=== PATIENT | male | born 1950 | race Caucasian/White ===

== ENCOUNTER → 2018-02-27 21:56 | Outpatient (CLI) | payer MEDICARE, OTHER, SELFPAY ==
[2018-02-27 22:12] LABS: Absolute Lymphocyte Count 0.88 X10^3/ul (0.83-4.51); Absolute Neutrophil Count 5.1 X10^3/uL (2.0-7.7); Basophil# 0.03 X10^3/uL; Basophil% 0.4 % (0-1); Eosinophils% 1.4 % (0-5); Hematocrit 45.3 % (40-54); Hemoglobin 15.8 g/dl (13.0-16.5); Lymphocyte # 0.88 X10^3/ul (4.0); Lymphocyte % 12.2 % (19-41); Mean Corp Hgb Conc 34.9 g/gl (32-36); Mean Corpuscular Hgb 32.3 pg (27.0-32.0); Mean Corpuscular Volume 92.6 fL (80-94); Mean Platelet Vol. 10.1 fl (6.2-12.0); Monocyte# 1.07 X10^3/uL; Monocyte% 14.8 % (0-10); Neutrophil # 5.13 X10^3/uL (2.7-7.7); Neutrophil % 70.8 % (47-70); Platelet Count 168 K/mm3 (150-450); RBC Distribution Width CV 12.1 % (11.6-14.6); RBC Distribution Width SD 40.7 fl (35.1-43.9); Red Blood Count 4.89 M/mm3 (4.6-6.2); White Blood Count 7.2 K/mm3 (4.4-11.0)
[2018-02-27 22:13] LABS: POSITIVE COUNT NO; POSITIVE DIFFERENTIAL NO; POSITIVE MORPHOLOGY NO
[2018-02-27 22:22] LABS: ALB/GLOB Ratio 0.8 RATIO (0.9-2.4); AST(SGOT) 28 U/L (15-37); Alanine Aminotransfer ALT/SGPT 24 U/L (16-61); Albumin, Serum 3.6 g/dL (3.2-5.0); Alkaline Phosphatase 134 U/L (45-117); Anion Gap 9 (5-15); BUN 6 mg/dL (7-18); BUN/Creat Ratio 6.5 RATIO (10-20); Calcium,Total 8.9 mg/dL (8.5-10.1); Chloride 90 mmol/L (98-107); Creatinine, Serum 0.92 mg/dL (0.70-1.30); EST Glomerular Filtration Rate 86 mL/min (>60); Est Glom Filt Rate - Afr Amer 105 mL/min (>60); Globulin 4.3 g/dL (2.2-4.2); Glucose 84 mg/dL (74-106); Protein, Total 7.9 g/dL (6.4-8.2); Sodium Level 126 mmol/L (136-145)
== END ==
PROVIDERS: Visit Provider Nurse Practitioner
DX: R10.30 Lower abdominal pain, unspecified (principal); R07.9 Chest pain, unspecified; R07.81 Pleurodynia
CPT/HCPCS: 80053; 84484; 85025

== ENCOUNTER → 2018-04-01 21:07 | Outpatient (CLI) | payer MEDICARE, OTHER, SELFPAY ==
[2018-04-01 21:32] LABS: Anion Gap 8 (5-15); BUN 6 mg/dL (7-18); BUN/Creat Ratio 6.5 RATIO (10-20); Calcium,Total 9.5 mg/dL (8.5-10.1); Chloride 91 mmol/L (98-107); Creatinine, Serum 0.93 mg/dL (0.70-1.30); EST Glomerular Filtration Rate 85 mL/min (>60); Est Glom Filt Rate - Afr Amer 103 mL/min (>60); Glucose 104 mg/dL (74-106); Potassium 5.2 mmol/L (3.5-5.1); Sodium Level 128 mmol/L (136-145)
== END ==
PROVIDERS: Referring Provider Nurse Practitioner; Visit Provider Nurse Practitioner
DX: E71.42 Carnitine deficiency due to inborn errors of metabolism (principal)
CPT/HCPCS: 80048

== ENCOUNTER → 2018-07-22 10:06 | Outpatient (CLI) | payer MEDICARE, OTHER, SELFPAY ==
[2018-03-31 17:07] VITALS: BMI 24.5
[2018-07-22 11:25] LABS: Amphetamine Urine VISTA NEGATIVE (<1000 ng/mL); Barbiturate Urine VISTA NEGATIVE (< 200 ng/mL); Benzodiazepine Urine VISTA NEGATIVE (< 200 ng/mL); Cocaine Urine VISTA NEGATIVE (< 300 ng/mL); Ecstacy Urine VISTA NEGATIVE (< 500 ng/mL); Methadone Urine VISTA NEGATIVE (< 300 ng/mL); PCP Urine VISTA NEGATIVE (< 25 ng/mL); THC Urine VISTA NEGATIVE (< 50 ng/mL); Vista UDS pH Range 6
== END ==
PROVIDERS: Family Provider Nurse Practitioner; PCP Nurse Practitioner; Referring Provider Anesthesiology Pain Medicine; Visit Provider Anesthesiology Pain Medicine
DX: F11.20 Opioid dependence, uncomplicated (principal)
CPT/HCPCS: 80307

== ENCOUNTER → 2019-11-10 21:17 | Outpatient (CLI) | payer MEDICARE, SELFPAY ==
[2019-11-10 14:55] VITALS: BMI 22.8
[2019-11-10 21:37] LABS: Absolute Neutrophil Count 4.6 X10^3/uL (2.0-7.7); Basophil# 0.07 X10^3/uL; Basophil% 1.1 % (0-1); Eosinophil# 0.07 X10^3/uL; Eosinophils% 1.1 % (0-5); Hemoglobin 14.8 g/dL (13.0-16.5); Mean Corp Hgb Conc 32.9 g/dL (32-36); Mean Corpuscular Volume 97.2 fL (80-94); Monocyte# 0.93 X10^3/uL; NRBC Flagged by Analyzer 0 % (0-5); Neutrophil # 4.57 X10^3/uL (2.7-7.7); Neutrophil % 68.6 % (47-70); Platelet Count 296 K/mm3 (150-450); RBC Distribution Width SD 46.1 fl (35.1-43.9); Red Blood Count 4.63 M/mm3 (4.6-6.2); White Blood Count 6.7 K/mm3 (4.4-11.0)
[2019-11-10 21:43] LABS: Prothrombin Time (Protime)PT. 13.1 SECONDS (11.7-14.9)
[2019-11-10 21:49] LABS: ALB/GLOB Ratio 0.9 RATIO (0.9-2.4); AST(SGOT) 39 U/L (15-37); Alanine Aminotransfer ALT/SGPT 32 U/L (16-61); Albumin, Serum 3.7 g/dL (3.2-5.0); Alkaline Phosphatase 98 U/L (45-117); Anion Gap 6 (5-15); BUN 7 mg/dL (7-18); BUN/Creat Ratio 7.2 RATIO (10-20); Calcium,Total 9.2 mg/dL (8.5-10.1); Chloride 95 mmol/L (98-107); Cholesterol 206 mg/dL (200); Creatinine, Serum 0.97 mg/dL (0.70-1.30); EST Glomerular Filtration Rate 81 mL/min (>60); Est Glom Filt Rate - Afr Amer 98 mL/min (>60); Globulin 4.1 g/dL (2.2-4.2); Glucose 89 mg/dL (74-106); High Density Lipoprotein 69 mg/dL; PSA,Total - Annual Screen 4.33 ng/mL (0.00-4.00); Potassium 5.1 mmol/L (3.5-5.1); Protein, Total 7.8 g/dL (6.4-8.2); Sodium Level 130 mmol/L (136-145); Triglycerides 197 mg/dL; Very Low Density Lipoprotein 39 mg/dL (5-40)
== END ==
PROVIDERS: PCP Nurse Practitioner; Visit Provider Nurse Practitioner
DX: M48.54XA Collapsed vertebra, not elsewhere classified, thoracic region, initial encounter for fracture (principal); I10 Essential (primary) hypertension; R35.0 Frequency of micturition; R07.9 Chest pain, unspecified; R10.10 Upper abdominal pain, unspecified; Z12.5 Encounter for screening for malignant neoplasm of prostate
CPT/HCPCS: 80053; 80061; 84153; 85025; 85610; G0103

== ENCOUNTER → 2019-12-04 20:15 | Outpatient (CLI) | payer MEDICARE, SELFPAY ==
[2019-12-04 16:17] VITALS: BMI 22.8
[2019-12-12 17:45] LABS: PSA, Free 0.86 ng/mL; PSA, Free % 14.8 % (.); PSA, Total Ultrasensitive 5.8 ng/mL (0.0-4.0)
== END ==
PROVIDERS: PCP Nurse Practitioner; Referring Provider Nurse Practitioner; Visit Provider Nurse Practitioner
DX: R97.20 Elevated prostate specific antigen [PSA] (principal)
CPT/HCPCS: 84153; 84154

== ENCOUNTER → 2020-03-22 21:21 | Outpatient (CLI) | payer MEDICARE, SELFPAY ==
[2020-03-22 21:55] LABS: ALB/GLOB Ratio 0.9 RATIO (0.9-2.4); AST(SGOT) 27 U/L (15-37); Alanine Aminotransfer ALT/SGPT 23 U/L (16-61); Albumin, Serum 3.8 g/dL (3.2-5.0); Alkaline Phosphatase 97 U/L (45-117); Anion Gap 7 (5-15); BUN 8 mg/dL (7-18); BUN/Creat Ratio 9.8 RATIO (10-20); Calcium,Total 8.8 mg/dL (8.5-10.1); Chloride 91 mmol/L (98-107); Creatinine, Serum 0.82 mg/dL (0.70-1.30); EST Glomerular Filtration Rate 99 mL/min (>60); Est Glom Filt Rate - Afr Amer 119 mL/min (>60); Globulin 4.1 g/dL (2.2-4.2); Glucose 86 mg/dL (74-106); Potassium 4.2 mmol/L (3.5-5.1); Protein, Total 7.9 g/dL (6.4-8.2); Sodium Level 125 mmol/L (136-145)
[2020-03-24 15:11] LABS: PSA, Free 1.15 ng/mL; PSA, Free % 13.9 % (.); PSA, Total Ultrasensitive 8.3 ng/mL (0.0-4.0)
== END ==
LOC: OLS.AHF 21:21 → LAB 03-23 06:22 → LABSPEC 03-23 06:27
PROVIDERS: Visit Provider Nurse Practitioner
DX: E87.1 Hypo-osmolality and hyponatremia (principal); R97.20 Elevated prostate specific antigen [PSA]
CPT/HCPCS: 80053; 84153; 84154

== ENCOUNTER → 2020-05-12 21:39 | Outpatient (CLI) | payer MEDICARE, SELFPAY ==
[2020-05-16 04:21] LABS: PSA, Free 0.68 ng/mL; PSA, Free % 14.8 % (.); PSA, Total Ultrasensitive 4.6 ng/mL (0.0-4.0)
== END ==
PROVIDERS: Referring Provider Nurse Practitioner; Visit Provider Nurse Practitioner
DX: R10.10 Upper abdominal pain, unspecified (principal); R97.20 Elevated prostate specific antigen [PSA]
CPT/HCPCS: 84153; 84154; 87086

== ENCOUNTER → 2021-04-27 22:49 | Outpatient (CLI) | payer MEDICARE, SELFPAY ==
[2021-04-27 23:17] LABS: Absolute Lymphocyte Count 0.92 X10^3/uL (0.83-4.51); Absolute Neutrophil Count 4.1 X10^3/uL (2.0-7.7); Basophil% 1.7 % (0-1); Eosinophil# 0.03 X10^3/uL; Eosinophils% 0.5 % (0-5); Hematocrit 43.2 % (40-54); Hemoglobin 14.6 g/dL (13.0-16.5); Lymphocyte # 0.92 X10^3/ul (0.83-4.51); Lymphocyte % 15.2 % (19-41); Mean Corp Hgb Conc 33.8 g/dL (32-36); Mean Corpuscular Hgb 32.9 pg (27.0-32.0); Mean Corpuscular Volume 97.3 fL (80-94); Mean Platelet Vol. 10.1 fl (6.2-12.0); Monocyte% 14.9 % (0-10); NRBC Flagged by Analyzer 0 % (0-5); Neutrophil # 4.07 X10^3/uL (2.7-7.7); Neutrophil % 67.4 % (47-70); Platelet Count 247 K/mm3 (150-450); RBC Distribution Width CV 12.2 % (11.6-14.6); RBC Distribution Width SD 44.2 fl (35.1-43.9); Red Blood Count 4.44 M/mm3 (4.6-6.2)
[2021-04-27 23:26] LABS: ALB/GLOB Ratio 0.8 RATIO (0.9-2.4); AST(SGOT) 42 U/L (15-37); Alanine Aminotransfer ALT/SGPT 31 U/L (16-61); Albumin, Serum 3.3 g/dL (3.2-5.0); Alkaline Phosphatase 108 U/L (45-117); Anion Gap 6 (5-15); BUN 4 mg/dL (7-18); Calcium,Total 8.6 mg/dL (8.5-10.1); Chloride 95 mmol/L (98-107); Cholesterol 197 mg/dL (200); Creatinine, Serum 0.81 mg/dL (0.70-1.30); EST Glomerular Filtration Rate 100 mL/min (>60); Est Glom Filt Rate - Afr Amer 120 mL/min (>60); Globulin 4.1 g/dL (2.2-4.2); Glucose 82 mg/dL (74-106); High Density Lipoprotein 84 mg/dL; Potassium 3.6 mmol/L (3.5-5.1); Protein, Total 7.4 g/dL (6.4-8.2); Sodium Level 130 mmol/L (136-145); Triglycerides 81 mg/dL; Very Low Density Lipoprotein 16 mg/dL (5-40)
== END ==
PROVIDERS: PCP Nurse Practitioner; Visit Provider Nurse Practitioner
DX: I10 Essential (primary) hypertension (principal); E78.5 Hyperlipidemia, unspecified; R97.20 Elevated prostate specific antigen [PSA]; Z12.5 Encounter for screening for malignant neoplasm of prostate
CPT/HCPCS: 80053; 80061; 84153; 85025; G0103

== ENCOUNTER → 2021-10-10 | Outpatient (CLI) | payer MEDICARE, SELFPAY ==
[2021-10-12 14:31] LABS: PSA, Free 0.78 ng/mL; PSA, Free % 12.4 % (.); PSA, Total Ultrasensitive 6.3 ng/mL (0.0-4.0)
== END | disposition home or self-care (01) ==
PROVIDERS: PCP Nurse Practitioner; Referring Provider Nurse Practitioner; Visit Provider Nurse Practitioner
DX: R97.20 Elevated prostate specific antigen [PSA] (principal); M54.50 Low back pain, unspecified; G89.29 Other chronic pain
CPT/HCPCS: 84153; 84154

== ENCOUNTER → 2021-12-08 | Outpatient (CLI) | payer MEDICARE, SELFPAY ==
[2021-12-12 16:16] LABS: PSA, Free % 8.4 % (.); PSA, Total Ultrasensitive 8.3 ng/mL (0.0-4.0)
== END | disposition home or self-care (01) ==
PROVIDERS: PCP Nurse Practitioner; Referring Provider Nurse Practitioner; Visit Provider Nurse Practitioner
DX: R97.20 Elevated prostate specific antigen [PSA] (principal)
CPT/HCPCS: 84153; 84154

== ENCOUNTER → 2022-11-02 | Outpatient (CLI) | payer MEDICARE, SELFPAY ==
[2022-11-02 21:46] LABS: Absolute Lymphocyte Count 0.89 X10^3/uL (0.83-4.51); Absolute Neutrophil Count 4.6 X10^3/uL (2.0-7.7); Basophil# 0.08 X10^3/uL; Basophil% 1.2 % (0-1); Eosinophil# 0.05 X10^3/uL; Eosinophils% 0.8 % (0-5); Hemoglobin 14.2 g/dL (13.0-16.5); Lymphocyte # 0.89 X10^3/ul (0.83-4.51); Lymphocyte % 13.7 % (19-41); Mean Corp Hgb Conc 34.6 g/dL (32-36); Mean Corpuscular Hgb 33.1 pg (27.0-32.0); Mean Corpuscular Volume 95.6 fL (80-94); Mean Platelet Vol. 9.1 fl (6.2-12.0); Monocyte# 0.85 X10^3/uL; NRBC Flagged by Analyzer 0 % (0-5); Neutrophil # 4.63 X10^3/uL (2.7-7.7); Platelet Count 268 K/mm3 (150-450); RBC Distribution Width CV 12.4 % (11.6-14.6); RBC Distribution Width SD 43.5 fl (35.1-43.9); Red Blood Count 4.29 M/mm3 (4.6-6.2); White Blood Count 6.5 K/mm3 (4.4-11.0)
[2022-11-02 21:50] LABS: ALB/GLOB Ratio 0.9 RATIO (0.9-2.4); AST(SGOT) 29 U/L (15-37); Alanine Aminotransfer ALT/SGPT 19 U/L (16-61); Albumin, Serum 3.7 g/dL (3.2-5.0); Alkaline Phosphatase 99 U/L (45-117); Anion Gap 7 (5-15); BUN 6 mg/dL (7-18); BUN/Creat Ratio 6.4 RATIO (10-20); Calcium,Total 9.3 mg/dL (8.5-10.1); Chloride 95 mmol/L (98-107); Cholesterol 157 mg/dL (200); Creatinine, Serum 0.94 mg/dL (0.70-1.30); EST Glomerular Filtration Rate 83 mL/min (>60); Est Glom Filt Rate - Afr Amer 101 mL/min (>60); Glucose 88 mg/dL (74-106); High Density Lipoprotein 93 mg/dL; Magnesium 1.8 mg/dL (1.6-2.6); PSA,Total- Diagnostic 7.83 ng/mL (0.0-4.0); Potassium 4.5 mmol/L (3.5-5.1); Protein, Total 7.7 g/dL (6.4-8.2); Sodium Level 129 mmol/L (136-145); Triglycerides 69 mg/dL; Very Low Density Lipoprotein 14 mg/dL (5-40)
== END | disposition home or self-care (01) ==
LOC: LABSPEC 21:19
PROVIDERS: PCP Nurse Practitioner; Visit Provider Nurse Practitioner
DX: R10.30 Lower abdominal pain, unspecified (principal); I10 Essential (primary) hypertension; N52.9 Male erectile dysfunction, unspecified; E78.5 Hyperlipidemia, unspecified; R97.20 Elevated prostate specific antigen [PSA]
CPT/HCPCS: 80053; 80061; 83735; 84153; 85025

== ENCOUNTER → 2023-06-17 | Outpatient (CLI) | payer MEDICARE, SELFPAY ==
--- OUTSIDE RECORDS SUMMARY | 2023-06-17 22:00 | XMS RPT_ITS | CCD ---
Author Name Unknown Address [address] [place] [address] Organization [facility] Care Team Providers Care Patrol Judge Name Role Phone ANGLE BERG Unavailable Unavailable ANGLE BERG Unavailable Unavailable TIANNA SIMON Unavailable Unavailable ANGLE BERG Unavailable Unavailable ANGLE BERG Unavailable Unavailable TIANNA, SIMON Unavailable Unavailable PROVIDER, UNKNOWN Unavailable Unavailable Walters, Cuauhtemoc Unavailable Unavailable Kenan Melendez Unavailable Unavailable Shannon Norton Unavailable Unavailable PROVIDER, UNKNOWN Unavailable Unavailable Walters, Cuauhtemoc Unavailable Unavailable Walters, Cuauhtemoc Unavailable Unavailable PROVIDER, UNKNOWN Unavailable Unavailable Walters, Cuauhtemoc Unavailable Unavailable Augustus Salguero Unavailable Unavailable PROVIDER, UNKNOWN Unavailable Unavailable Walters, Cuauhtemoc Unavailable Unavailable Walters, Cuauhtemoc Unavailable Unavailable PROVIDER, UNKNOWN Unavailable Unavailable Walters, Cuauhtemoc Unavailable Unavailable Walters CORN MILLER.HOME SERVICE ADVISOR, Cuauhtemoc L Primary Care Provide r Usama Siddiqi MD Unavailable [phone] DUKE FRANKLIN Attending Unavailable WALTERS, CUAUHTEMOC L Primary Care Unavailable RIVAS, EMMA E Attending Unavailable WALTERS, CUAUHTEMOC L Primary Care Unavailable WALTERS, CUAUHTEMOC L Primary Care Unavailable RIVSA, EMMA E Attending Unavailable WALTERS, CUAUHTEMOC L Primary Care Unavailable SUKHJINDER LAN Attending Unavailable WALTERS, CUAUHTEMOC L Primary Care Unavailable RIVAS, EMMA E Admitting Unavailable RIVAS, EMMA E Attending Unavailable WALTERS, CUAUHTEMOC L Primary Care Unavailable RIVAS, EMMA E Referring Unavailable WALTERS, CUAUHTEMOC L Primary Care Unavailable RIVAS, EMMA E Referring Unavailable WALTERS, CUAUHTEMOC L Primary Care Unavailable DUKE FRANKLIN Referring Unavailable WALTERS, CUAUHTEMOC L Primary Care Unavailable DUKE FRANKLIN Referring Unavailable WALTERS, CUAUHTEMOC L Primary Care Unavailable WALTERS, CUAUHTEMOC L Primary Care Unavailable RIVAS, EMMA E Admitting Unavailable EMMA RIVAS Attending Unavailable MURALI GARRETT Unavailable CUAUHTEMOC WALTERS Primary Care Unavailable DELROY MERA Admitting Unavailable VLAERIA [place] Attending Unavailable Cuauhtemoc Walters Primary Care Provider [phone] CUAUHTEMOC WALTERS Primary Care Unavailable SHANNON NORTON Attending Unavailable SHANNON NORTON Admitting Unavailable Medications Current Medications Medication Drug Class(es) Dates Sig (Normalized) Sig (Original) olmesartan (1 source) Angiotensin 2 Receptor Jaden OLMESARTAN MEDOXOMIL PO Take by mouth. 0 Active zafirlukast 20 mg oral tablet (1 source) Leukotriene Receptor Antagonist take 1 tablet by mouth in the morning zafirlukast (Accolate) 20 MG tablet Take 20 mg by mouth in the morning. 0 Active Completed/Discontinued Medications Medication Drug Class(es) Dates Sig (Normalized) Sig (Original) aspirin 81 mg chewable tablet (10 sources) Platelet Aggregation Inhibitor, Nonsteroidal Anti-inflammatory Drug Start: 10-20-2013 take 1 tablet by mouth once daily aspirin 81 mg chewable tablet Take 1 tablet by mouth once daily. 90 tablet 3 10/20/2013 Active Problems Active Problems Problem Classification Problem Date Documented Da te Episodic/Chronic Abdominal hernia (9 sources) Diaphragmatic hernia without obstruction or gangrene; Translations: [Right inguinal hernia ] Onset: 04-04-2018 Episodic Cardiac dysrhythmias (10 sources) Nonsustained ventricular tachycardia ; Translations: [Nonsustained ventricular tachycardia] Onset: 10-19-2013 06-05-2021 Chronic Cataract (6 sources) Age-related nuclear cataract, right eye; Translations: [Senile combined form cataract of left eye] Onset: 10-21-2017 Resolved: 04-22-2023 04-22-2023 Chronic Conditions associated with dizziness or vertigo (1 source) Dizziness and giddiness; Translations: [Episode of dizziness] Onset: 10-10-2022 Episodic Conduction disorders (12 sources) Left bundle-branch block, unspecified; Translations: [Left bundle branch block] Onset: 07-07-2015 06-01-2017 Chronic Coronary atherosclerosis and other heart disease (20 sources) Atherosclerotic heart disease of [place] coronary artery without angina pectoris; Translations: [Coronary atherosclerosis] Onset: 10-20-2013 07-07-2015 Chronic Disorders of lipid metabolism (14 sources) Hyperlipidemia, unspecified; Translations: [Pure hypercholesterolemia] Onset: 07-07-2015 07-07-2015 Chronic Esophageal disorders (6 sources) Gastro-esophageal reflux disease without esophagitis; Translations: [Esophageal obstruction] Onset: 10-21-2017 Chronic Essential hypertension (15 sources) Essential (primary) hypertension; Translations: [Hypertensive disorder] Onset: 01-02-2010 06-05-2021 Chronic Malaise and fatigue (2 sources) Other malaise; Translations: [Other fatigue] Onset: 10-10-2022 Episodic Other fractures (2 sources) Collapsed vertebra, not elsewhere classified, thoracic region, initial encounter for fracture; Translations: [Collapsed vertebra, NEC, thoracic region, init] Onset: 04-04-2018 Episodic Other gastrointestinal disorders (2 sources) Dysphagia, unspecified; Translations: [Dysphagia, unspecified] Onset: 03-06-2018 Episodic Other gastrointestinal disorders (1 source) Diarrhea; Translations: [Diarrhea, unspecified] Episodic Other injuries and conditions due to external causes (2 sources) Food in esophagus causing other injury, initial encounter; Translations: [Food in esophagus causing other injury, initial encounter] Onset: 03-06-2018 Other lower respiratory disease (2 sources) Other nonspecific abnormal finding of lung field; Translations: [Other nonspecific abnormal finding of lung field] Onset: 03-05-2018 Episodic Other lower respiratory disease (2 sources) H/O: pneumothorax; Translations: [Personal history of other diseases of the respiratory system] Episodic Other lower respiratory disease (1 source) Personal history of other diseases of the respiratory system; Translations: [H/O pneumothorax] Onset: 08-21-2022 Episodic Other nervous system disorders (1 source) Anesthesia of skin; Translations: [Left facial numbness] Onset: 10-10-2022 Episodic Other nutritional; endocrine; and metabolic disorders (1 source) Hypomagnesemia; Translations: [Hypomagnesemia] Onset: 10-10-2022 Chronic Residual codes; unclassified (1 source) History of hernia repair; Translations: [Other specified postprocedural states] Episodic Spondylosis; intervertebral disc disorders; other back problems (2 sources) Other spondylosis, thoracic region; Translations: [Other spondylosis, thoracic region] Onset: 04-04-2018 Chronic Transient cerebral ischemia (1 source) Transient cerebral ischemic attack, unspecified; Translations: [TIA (transient ischemic attack)] Onset: 10-11-2022 Chronic Unclassified (1 source) Unknown / UNK(Unknown) Onset: 06-02-2017 Past or Other Problems Problem Classification Problem Date Documented Da te Episodic/Chronic Appendicitis and other appendiceal conditions (11 sources) Acute appendicitis with localized peritonitis; Translations: [Acute appendicitis with localized peritonitis and gangrene, without perforation] Onset: 07-12-2022 07-13-2022 Episodic Coronary atherosclerosis and other heart disease (15 sources) Presence of coronary angioplasty implant and graft; Translations: [Stented coronary artery] Onset: 07-07-2015 06-02-2017 Episodic Fluid and electrolyte disorders (11 sources) Hyponatremia; Translations: [Hypo-osmolality and hyponatremia] Onset: 10-19-2013 Episodic Nonspecific chest pain (20 sources) Chest pain, unspecified; Translations: [Chest pain] Onset: 01-02-2010 06-02-2017 Episodic Other aftercare (4 sources) termite treater (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 of aspirin; Translations: [termite treater (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 of aspirin] Onset: 10-21-2017 Episodic Other gastrointestinal disorders (1 source) Esophageal dysphagia; Translations: [Other dysphagia] Onset: 03-06-2018 03-23-2022 Episodic Other injuries and conditions due to external causes (1 source) Obstruction of esophagus; Translations: [Food in esophagus causing other injury, initial encounter] Onset: 03-06-2018 03-23-2022 Episodic Other injuries and conditions due to external causes (1 source) Foreign body in esophagus; Translations: [Unspecified foreign body in esophagus causing other injury, initial encounter] Onset: 03-06-2018 03-23-2022 Episodic Other screening for suspected conditions (not mental disorders or infectious disease) (10 sources) Cardiovascular stress test abnormal; Translations: [Abnormal result of other cardiovascular function study] Onset: 01-02-2010 01-02-2010 Episodic Pleurisy; pneumothorax; pulmonary collapse (17 sources) Primary spontaneous pneumothorax; Translations: [Primary spontaneous pneumothorax] Onset: 07-12-2022 07-12-2022 Episodic Residual codes; unclassified (1 source) Acquired absence of other specified parts of digestive tract; Translations: [S/P laparoscopic appendectomy] Onset: 07-12-2022 Episodic Screening or history of mental health and substance abuse (14 sources) Personal history of nicotine dependence; Translations: [Ex-cigarette smoker] Onset: 07-07-2015 07-07-2015 Episodic Results Test Name Value Interpretation Reference Range Facil ity Vital Signs Date Time Vital Sign Value Performing Clinician Faci lity 04-22-2023 14:03-0500 Body temperature 97.3 [degF] Shannon Norton MD Work Phone: [facility] 04-22-2023 14:03-0500 Diastolic blood pressure 83 mm[Hg] Shannon Norton MD Work Phone: [facility] 04-22-2023 14:03-0500 Heart rate 71 /min Shannon Norton MD Work Phone: [facility] 04-22-2023 14:03-0500 Respiratory rate 16 /min Shannon Norton MD Work Phone: [facility] 04-22-2023 14:03-0500 SaO2% (BldA) [Mass fraction] 99 % Shannon Norton MD Work Phone: [facility] 04-22-2023 14:03-0500 Systolic blood pressure 142 mm[Hg] Shannon Norton MD Work Phone: [facility] 04-22-2023 12:07-0500 Body height 175.3 cm Shannon Norton MD Work Phone: [facility] 04-22-2023 12:07-0500 Body mass index (BMI) [Ratio] 20.67 kg/m2 Shannon Norton MD Work Phone: [facility] 04-22-2023 12:07-0500 Body weight 63.5 kg Shannon Norton MD Work Phone: [facility] 07-09-2022 14:22-0500 Body height 175.3 cm Duke Franklin MD Work Phone: [facility] 07-09-2022 14:22-0500 Body weight 61.69 kg Duke Franklin MD Work Phone: [facility] Encounters Encounter Date Encounter Type Care Provider Facility Start: 04-22-2023 End: 04-22-2023 ambulatory CUAUHTEOMC WALTERS [facility] Start: 04-22-2023 End: 04-22-2023 Subsequent hospital visit by physician Shannon Norton MD Work Phone: [facility] Start: 10-10-2022 End: 10-11-2022 ambulatory CUAUHTEMOC WALTERS Facility:[facility] Start: 09-18-2022 End: 09-18-2022 ambulatory EMMAPETAR RIVAS Facility:[facility] Start: 09-18-2022 End: 09-18-2022 Patient encounter procedure Emma Rivas MD Work Phone: General Surgery Procedures Date Procedure Procedure Detail Performing Clinician Start: 07-11-2022 Ct pelvis w/o contra st material Duke Franklin MD Work Phone: Start: 07-09-2022 Urnls dip stick/tabl et rgnt auto w/o microscopy Duke Franklin MD Work Phone: Plan of Treatment Date Care Activity Detail Author Start: 07-13-2025 DIABETES SCREEN DIABETES SCREEN [facility] Start: 04-22-2023 End: 04-22-2023 Xcapsl ctrc rmvl insj io lens prosth w/o ecp PHACOEMULSIFICATION WITH INTRAOCULAR LENS INSERTION Combined forms of age-related cataract, left eye 04/22/2023 1:29 PM EST [facility] OR Start: 02-08-2023 Influenza vaccination [facility] Start: 06-10-2022 ADVANCE DIRECTIVE DISCUSSION ADVANCE DIRECTIVE DISCUSSION [facility] Start: 06-10-2022 DEPRESSION ASSESSMENT DEPRESSION ASSESSMENT [facility] Start: 02-08-2022 Influenza vaccination INFLUENZA (#1) [facility] Start: 06-01-2020 DIABETES SCREEN DIABETES SCREEN [facility] Start: 10-20-2018 LIPID SCREEN LIPID SCREEN [facility] Start: 10-20-2014 Hepatitis B surface antibody level LDL CHOLESTEROL [facility] Start: 02-16-2013 Pneumococcal Vaccine: 65+ Years (1 - PCV) Pneumococcal Vaccine: 65+ Years (1 - PCV) [facility] Start: 02-16-2013 PNEUMOCOCCAL: 65+ (1 - PCV) PNEUMOCOCCAL: 65+ (1 - PCV) [facility] Start: 02-16-1998 SHINGRIX VACCINE (1 of 2) SHINGRIX VACCINE (1 of 2) [facility] Start: 02-16-1998 Zoster Vaccines (1 of 2) Zoster Vaccines (1 of 2) [facility] Start: 02-16-1993 COLOGUARD (FIT-DNA) COLOGUARD (FIT-DNA) [facility] Start: 02-16-1993 Colonoscopy COLONOSCOPY [facility] Start: 02-16-1993 COLORECTAL CANCER SCREENING COLORECTAL CANCER SCREENING [facility] Start: 02-16-[address] COLONOGRAPHY [facility] Start: 02-16-1993 FECAL OCCULT BLOOD FECAL OCCULT BLOOD [facility] Start: 02-16-1993 SIGMOIDOSCOPY SIGMOIDOSCOPY [facility] Start: 02-16-1967 DTaP/Tdap/Td Vaccines (1 - Tdap) DTaP/Tdap/Td Vaccines (1 - Tdap) [facility] Start: 02-16-1967 Urine microalbumin profile DTAP,TDAP,TD (1 - Tdap) [facility] Start: 02-16-1966 ANNUAL PCP TEAM CHRONIC DISEASE VISIT ANNUAL PCP TEAM CHRONIC DISEASE VISIT [facility] Start: 02-16-1966 BP CONTROLLED (<130/80) BP CONTROLLED (<130/80) [facility] in Start: 02-16-1966 Diabetes mellitus screening Diabetes Screening [facility] Start: 02-16-1966 HEPATITIS C SCREENING HEPATITIS C SCREENING [facility] Start: 02-16-1966 Hepatitis C screening Hepatitis C Screening [facility] Start: 1960 Depression Screening Depression Screening [facility] Start: 1950 COVID-19 VACCINE (#1) COVID-19 VACCINE (#1) [facility] Start: 1950 ABDOMINAL AORTIC ANEURYSM SCREENING ABDOMINAL AORTIC ANEURYSM SCREENING [facility] Start: 1950 Lipid panel Lipid Panel [facility] Start: 1950 Medicare Advantage Annual Wellness Visit (AWV) Medicare Advantage Annual Wellness Visit (AWV) [facility] Start: 1950 Screening for malignant neoplasm of colon [facility] Clostridioides diffi cile toxin genes [Presence] in Stool by ALEX with probe detection C. DIFFICILE PCR Lab Routine Diarrhea, unspecified type 07/18/2022 12:00 PM EST [facility] Work Phone: End: 08-08-2023 Ct pelvis w/o contrast material CT PELVIS WO IVCON Radiology STAT Right inguinal hernia 1 Occurrences starting 07/09/2022 until 08/08/2023 [facility] Work Phone: Payers Date Payer Category Payer Medicare [id number] 2013 Medicare 1950 Unknown [id number] 1950 Unknown [id number] 1950 Unknown [id number] 1950 Unknown [id number] 1950 Unknown [id number] Medicare [id number] Unknown Social History Date Type Detail Facility Start: 07-09-2022 [facility] End: 03-10-2014 History of tobacco use Current smoker [facility] End: 03-10-2014 History of tobacco use Cigarette Smoker [facility] Start: 07-09-2022 End: 04-22-2023 Cigarette pack-years [facility] Start: 07-09-2022 End: 04-22-2023 Alcohol intake Current drinker of alcohol (finding) [facility] Start: 06-01-2017 Alcohol Comment daily [facility] Start: 1950 Sex Assigned At Not on file [facility] Start: 04-22-2023 Tobacco use panel [facility] Start: 04-22-2023 Alcohol Comment 6-8 beers/day [facility] Medical Equipment Procedure Code Equipment Code Equipment Origin al Text Equipment Identifier Dates Med Dextile Rt 1 3cm X 9cm (5.1 X 3.5) - [id number] Start: 08-24-2022 Lens Iol Posteri or Akreos [facility] - [id number] - [id number] Start: 04-22-2023 Clinical Notes 10-17-2013 to 04-22-2023 Perioperative Nursing Note - Roberta Alcantar RN - 04/22/2023 2:47 PM ESTPerioperative Nursing Note - Roberta Alcantar RN - 04/22/2023 2:47 PM ESTDischarge Instructions Note Date & Type Note Facility 04-22-2023 Note Discharged to home . Accompanied by . AVS and education reviewed with patient and , both verbalized understanding. Mode of transportation private vehicle Belongings sent. [facility] 04-22-2023 Note Patient: Stu salinas Procedure Summary Date: 04/22/23 Room / Location: [facility] Anesthesia Start: 1328 Anesthesia Stop: 1406 Procedure: PHACOEMULSIFICATION WITH INTRAOCULAR LENS INSERTION (Left: Eye) Diagnosis: Combined forms of age-related cataract, left eye (Combined forms of age-related cataract, left eye [H25.812]) Surgeons: Shannon Norton MD Responsible Provider: No Anesthesiologist - marlen/MD Jesica Anesthesia Type: MAC ASA Status: 3 Anesthesia Type: MAC Vitals Value Taken Time BP 156/85 04/22/23 1406 Temp 98.0 f 04/22/23 1407 Pulse 73 04/22/23 1406 Resp 15 04/22/23 1407 SpO2 100 % 04/22/23 1406 Vitals shown include unfiled device data. Anesthesia Post Evaluation Patient location during evaluation: PACU Patient participation: complete - patient participated Level of consciousness: awake and alert Pain management: satisfactory to patient Airway patency: patent Dental Injury: no Cardiovascular status: acceptable, blood pressure returned to baseline and hemodynamically stable Respiratory status: acceptable and spontaneous ventilation Hydration status: euvolemic Nausea/Vomiting: controlled No notable events documented. Patient can be discharged once all PACU criteria has been met. [facility] 04-22-2023 Note Patient: Stu salinas Procedure Summary Date: 04/22/23 Room / Location: [facility] / [facility] OR Anesthesia Start: 1329 Anesthesia Stop: 1406 Procedure: PHACOEMULSIFICATION WITH INTRAOCULAR LENS INSERTION (Left: Eye) Diagnosis: Combined forms of age-related cataract, left eye (Combined forms of age-related cataract, left eye [H25.812]) Surgeons: Shannon Norton MD Responsible Provider: No Anesthesiologist - Ana/MD Jesica Anesthesia Type: MAC ASA Status: 3 Anesthesia Type: MAC Vitals Value Taken Time BP 156/85 04/22/23 1406 Temp 98.0 04/22/23 1406 Pulse 73 04/22/23 1406 Resp 15 04/22/23 1406 SpO2 100 % 04/22/23 1406 Vitals shown include unfiled device data. Anesthesia Post Evaluation Patient location during evaluation: PACU Patient participation: complete - patient participated Level of consciousness: awake and alert Pain management: satisfactory to patient Multimodal analgesia pain management approach Airway patency: patent Two or more strategies used to mitigate risk of obstructive sleep apnea Cardiovascular status: acceptable and hemodynamically stable Respiratory status: acceptable Hydration status: acceptable No notable events documented. MIPS #[id number] PONV Patient did not receive an inhalational anesthetic (XX430) MIPS # 424 Perioperative Temperature Management Anesthesia time was less than 60 minutes (4256F) MIPS #477 Multimodal Pain Management Not emergent case Patient was not administered multimodal pain management (G2149) Patient reports no pain in PACU (G2149) MIPS #404 Anesthesiology Smoking Abstinence The patient is not a current smoker (e.g. cigarette, cigar, pipe, e-cigarette/vaping/marijuana) If no stop here (G9644) I completed my handoff to the receiving clinician during which we: 1. Identified the patient 2. Identified the responsible provider 3. Reviewed the pertinent medical history 4. Discussed the surgical course 5. Reviewed intra-op anesthesia management and issues during anesthesia 6. Set expectations for post-procedure period 7. Allowed opportunity for questions and acknowledgement of understanding. [facility] 04-22-2023 Note Formatting of this n ote might be different from the original. Discharged to home . Accompanied by . AVS and education reviewed with patient and , both verbalized understanding. Mode of transportation private vehicle Belongings sent. [facility] 04-22-2023 Miscellaneous Notes Discharged to home . Accompanied by . AVS and education reviewed with patient and , both verbalized understanding. Mode of transportation private vehicle Belongings sent. Operative Report NAME: Stu Edmonds : 1950 AGE: 73 y.o. SURGEON: Shannon Norton M.D. OPERATIVE EYE: left PREOPERATIVE DIAGNOSIS: Mature mixed cataract, nuclear sclerotic and posterior subcapsular operative eye. POSTOPERATIVE DIAGNOSIS: Mature mixed cataract, nuclear sclerotic and posterior subcapsular operative eye. OPERATION: 1. Cataract extraction by phacoemulsification with placement of posterior chamber intraocular lens implant 2. Staining of the anterior capsule using trypan blue. CERTIFIED DRIVER EXAMINER: None CATERING SERVICE MANAGER: Per anesthesia record. ANESTHESIA: Local with topical tetracaine drops and monitored anesthesia care. COMPLICATIONS: None. INDICATIONS: as delineated PROCEDURE: The patient was brought to the operating room, placed in supine position. Attention was given to the operative eye. Topical anesthetic tetracaine drops were administered. The eye was then prepped and draped in usual sterile ophthalmic fashion. A wire lid speculum was placed in the operative microscope was used. On inspection, the density of the cataract was such that it prevented adequate visualization of the anterior chamber structure. The red reflex was poor. As a result, it was determined that the anterior capsule would be stained using trypan blue to facilitate visualization of the anterior capsule. A 1.0 mm side-port blade was then used to create paracentesis at the 2 o'clock position. Through this incision and air bubble was introduced into the anterior chamber. Trypan blue was then dripped into the anterior capsular service and allowed to remain in place for approximately 30 seconds. It was then flushed and using balanced salt solution. Following this Viscoelastic was then used to inflate the anterior chamber and cut the endothelial surface. A 2.4 mm microkeratome was then used to create a triplanar clear corneal incision at the 11 o'clock position. A pre-patient cystotome was then used to initiate an anterior capsulorrhexis. An Utrata forceps was then used to complete the capsulorrhexis in a curvilinear fashion. Balanced salt solution on a flat-tipped cannula was then used to perform hydrodissection and hydrodelineation of the lens. It was confirmed that the lens was freely mobile within the capsular bag. Phacoemulsification was then performed in a divide and conquer manner to remove the lens nucleus. Phacoemulsification time was CDE 21.56. Automated irrigation and aspiration was then performed to remove all cortical remnants. Capsular bag was inflated using Provisc. The lens injector was then used to place a model Akreos [id number] +16.50 diopter intraocular lens directly to the capsular bag. It was rotated in the proper position using the Jonas wand. The residual Viscoelastic was then removed using automated irrigation and aspiration. The wounds were hydrated using balanced salt solution. They were check for leaks and none were found. Topical antibiotic drops antibiotic/steroid ointment were placed. The eye was patched and shielded. The patient was transferred to the postacute care unit in good condition. SHANNON NORTON MD 04/22/23 2:05 PM documented in this encounter [facility] 04-22-2023 Hospital Discharge instructions Shannon Norton MD - 04/22/2023 2:03 PM EST Post-Operative Cataract Instructions You may take the patch and shield off and start taking eye drops FOUR hours after leaving the hospital. Your vision will be blurry. Starting drops will accelerate your healing process. After using the eye drops, replace the metal or plastic eye shield over the operative eye using a single piece of take Do NOT reapply the cotton patch. PREDNISOLONE ACETATE 1%: Apply 1 drop to the surgical eye EVERY HOUR while awake. MOXIFLOXACIN: Apply 1 drop to the surgical eye EVERY 2 HOURS while awake. KETOROLAC: Apply 1 drop to the surgical eye EVERY 2 HOURS while awake. Wait 5 minutes in between eye drops. The order does not matter. Continue taking the drops in this manner until your appointment tomorrow. What to Expect at Home Your Recovery: After surgery, your eye may be sore, it may feel scratchy, sticky, or uncomfortable. It may also water more than usual. Most people see better 1 to 3 days after surgery. But it could take 3 to 10 weeks to get the full benefits of surgery and to see as clearly as possible. Your doctor may send you home with a bandage, patch, or clear shield on your eye. This will keep you from rubbing your eye. Your doctor will also give you eyedrops to help your eye heal. Use them exactly as directed. You can read or watch TV right away, but things may look blurry. Most people are able to return to work or their normal routine in 1 to 3 days. After your eye heals, you may still need to wear glasses, especially for reading. This care sheet gives you a general idea about how long it will take for you to recover. But each person recovers at a different pace. Follow the steps below to get better as quickly as possible. How can you care for yourself at home? Activity Rest when you feel tired. Getting enough sleep will help you recover. You may have trouble judging distances for a few days. Move slowly, and be careful going up and down stairs and pouring hot liquids. Ask for help if you need it. Ask your doctor when it is okay to drive. Wear your eye bandage, patch, or shield for as long as your doctor recommends. You may only need to wear it when you sleep. You can shower or wash your hair the day after surgery. Keep water, soap, shampoo, hair spray, and shaving lotion out of your eye, especially for the first week. Do not rub or put pressure on your eye for at least 1 week. Do not wear eye makeup for 1 to 2 weeks. You may also want to avoid face cream or lotion. Do not get your hair colored or permed for 10 days after surgery. Do not bend over or do any strenuous activities, such as biking, jogging, weight lifting, or aerobic exercise, for 2 weeks or until your doctor says it is okay. Avoid swimming, hot tubs, gardening, and dusting for 1 to 2 weeks. Wear sunglasses on bright days for at least 1 year after surgery. Medicines You can resume all your regular medicines. She will also give you instructions about taking any new medicines. Follow your doctor's instructions for when to use your eyedrops. Always wash your hands before you put your drops in. To put in eyedrops: -Tilt your head back, and pull your lower eyelid down with one finger. -Drop the medicine inside the lower lid. -Close your eye for 30 to 60 seconds to let the drops absorb. -Do not touch the dropper tip to your eyelashes or any other surface. Follow your doctor's instructions for taking pain medicines. Follow-up care is a olson part of your treatment and safety. Be sure to make and go to all appointments, and call your doctor if you are having problems. It's also a good idea to know your test results and keep a list of the medicines you take. When should you call for help? Call 911 anytime you think you may need emergency care. For example, call if: You passed out (lost consciousness). You have severe trouble breathing. You have sudden chest pain and shortness of breath, or you cough up blood. Call your doctor now or seek immediate medical care if: You have eye pain. You have pus draining from your eye. Your vision gets worse. Your eye is still red and bloodshot after 3 or 4 days. You notice new floaters, flashes of light, or changes in your field of vision. Watch closely for changes in your health, and be sure to contact your doctor if you have any problems. documented in this encounter [facility] 04-22-2023 Note Subjective Stu Edmonds is a 73 y.o. male who presents to the [facility] today for a preoperative consultation at the request of surgeon Dr Norton who plans on performing Cataract surgery, left eye on April 22. Planned anesthesia: IV sedation. Pacemaker: no Defibrillator: no Blood Thinners: no Social History Socioeconomic History Marital status: Spouse name: Not on file Number of children: Not on file Years of education: Not on file Highest education level: Not on file Occupational History Not on file Tobacco Use Smoking status: Former Types: Cigarettes Quit date: 03/10/2014 Years since quittin.1 Smokeless tobacco: Never Substance and Sexual Activity Alcohol use: Yes Alcohol/week: 6.0 standard drinks of alcohol Types: 6 Standard drinks or equivalent per week Comment: 6-8 beers/day Drug use: No Sexual activity: Not on file Other Topics Concern Not on file Social History Narrative Not on file Social Determinants of Health Financial Resource Strain: Not on file Food Insecurity: Not on file Transportation Needs: Not on file Physical Activity: Not on file Stress: Not on file Social Connections: Not on file Intimate Partner Violence: Not on file Housing Stability: Not on file Past Medical History: Diagnosis Date CAD (coronary artery disease) GERD (gastroesophageal reflux disease) Hyperlipidemia Hypertension Past Surgical History: Procedure Laterality Date CARDIAC SURGERY stents x3 CATARACT EXTRACTION W/ INTRAOCULAR LENS IMPLANT Right 10/21/2017 DR NGUYEN ROTATOR CUFF REPAIR Left UPPER GASTROINTESTINAL ENDOSCOPY N/A 03/06/2018 EGD with dilitation Allergies:No Known Allergies Vital Signs: Ht 5'9 Wt 140 Bp 121/79 Pox 98% HR 82 resp 16 temp 97.6 Physical Exam Constitutional: Appearance: Normal appearance. HENT: Mouth/Throat: Pharynx: Oropharynx is clear. Eyes: Pupils: Pupils are equal, round, and reactive to light. Cardiovascular: Rate and Rhythm: Normal rate and regular rhythm. Pulmonary: Effort: Pulmonary effort is normal. Breath sounds: Normal breath sounds. Musculoskeletal: General: Normal range of motion. Cervical back: Normal range of motion. Skin: General: Skin is warm and dry. Neurological: Mental Status: He is alert and oriented to person, place, and time. Psychiatric: Mood and Affect: Mood normal. Judgment: Judgment normal. Predictors of anesthesia difficulty: Tolerate anesthesia in past: yes Morbid obesity? no Neck range of motion: normal Dentition: No chipped, loose, or missing teeth. Ap: CAD HTN TIA (10/2022) HLD GERD Cataract, L [facility] 04-22-2023 Note Formatting of this n ote might be different from the original. Operative Report NAME: Stu Edmonds : 1950 AGE: 73 y.o. SURGEON: Shannon Norton M.D. OPERATIVE EYE: left PREOPERATIVE DIAGNOSIS: Mature mixed cataract, nuclear sclerotic and posterior subcapsular operative eye. POSTOPERATIVE DIAGNOSIS: Mature mixed cataract, nuclear sclerotic and posterior subcapsular operative eye. OPERATION: 1. Cataract extraction by phacoemulsification with placement of posterior chamber intraocular lens implant 2. Staining of the anterior capsule using trypan blue. CERTIFIED DRIVER EXAMINER: None CATERING SERVICE MANAGER: Per anesthesia record. ANESTHESIA: Local with topical tetracaine drops and monitored anesthesia care. COMPLICATIONS: None. INDICATIONS: as delineated PROCEDURE: The patient was brought to the operating room, placed in supine position. Attention was given to the operative eye. Topical anesthetic tetracaine drops were administered. The eye was then prepped and draped in usual sterile ophthalmic fashion. A wire lid speculum was placed in the operative microscope was used. On inspection, the density of the cataract was such that it prevented adequate visualization of the anterior chamber structure. The red reflex was poor. As a result, it was determined that the anterior capsule would be stained using trypan blue to facilitate visualization of the anterior capsule. A 1.0 mm side-port blade was then used to create paracentesis at the 2 o'clock position. Through this incision and air bubble was introduced into the anterior chamber. Trypan blue was then dripped into the anterior capsular service and allowed to remain in place for approximately 30 seconds. It was then flushed and using balanced salt solution. Following this Viscoelastic was then used to inflate the anterior chamber and cut the endothelial surface. A 2.4 mm microkeratome was then used to create a triplanar clear corneal incision at the 11 o'clock position. A pre-patient cystotome was then used to initiate an anterior capsulorrhexis. An Utrata forceps was then used to complete the capsulorrhexis in a curvilinear fashion. Balanced salt solution on a flat-tipped cannula was then used to perform hydrodissection and hydrodelineation of the lens. It was confirmed that the lens was freely mobile within the capsular bag. Phacoemulsification was then performed in a divide and conquer manner to remove the lens nucleus. Phacoemulsification time was CDE 21.56. Automated irrigation and aspiration was then performed to remove all cortical remnants. Capsular bag was inflated using Provisc. The lens injector was then used to place a model Akreos MI60L +16.50 diopter intraocular lens directly to the capsular bag. It was rotated in the proper position using the Jonas wand. The residual Viscoelastic was then removed using automated irrigation and aspiration. The wounds were hydrated using balanced salt solution. They were check for leaks and none were found. Topical antibiotic drops antibiotic/steroid ointment were placed. The eye was patched and shielded. The patient was transferred to the postacute care unit in good condition. SHANNON NORTON MD 04/22/23 2:05 PM [facility] 04-22-2023 History and physical note Casandra Edmonds is a 73 y.o. male who presents to the [facility] today for a preoperative consultation at the request of surgeon Dr Norton who plans on performing Cataract surgery, left eye on April 22. Planned anesthesia: IV sedation. Pacemaker: no Defibrillator: no Blood Thinners: no Social History Socioeconomic History Marital status: Spouse name: Not on file Number of children: Not on file Years of education: Not on file Highest education level: Not on file Occupational History Not on file Tobacco Use Smoking status: Former Types: Cigarettes Quit date: 03/10/2014 Years since quittin.1 Smokeless tobacco: Never Substance and Sexual Activity Alcohol use: Yes Alcohol/week: 6.0 standard drinks of alcohol Types: 6 Standard drinks or equivalent per week Comment: 6-8 beers/day Drug use: No Sexual activity: Not on file Other Topics Concern Not on file Social History Narrative Not on file Social Determinants of Health Financial Resource Strain: Not on file Food Insecurity: Not on file Transportation Needs: Not on file Physical Activity: Not on file Stress: Not on file Social Connections: Not on file Intimate Partner Violence: Not on file Housing Stability: Not on file Past Medical History: Diagnosis Date CAD (coronary artery disease) GERD (gastroesophageal reflux disease) Hyperlipidemia Hypertension Past Surgical History: Procedure Laterality Date CARDIAC SURGERY stents x3 CATARACT EXTRACTION W/ INTRAOCULAR LENS IMPLANT Right 10/21/2017 DR NGUYEN ROTATOR CUFF REPAIR Left UPPER GASTROINTESTINAL ENDOSCOPY N/A 03/06/2018 EGD with dilitation Allergies:No Known Allergies Vital Signs: Ht 5'9 Wt 140 Bp 121/79 Pox 98% HR 82 resp 16 temp 97.6 Physical Exam Constitutional: Appearance: Normal appearance. HENT: Mouth/Throat: Pharynx: Oropharynx is clear. Eyes: Pupils: Pupils are equal, round, and reactive to light. Cardiovascular: Rate and Rhythm: Normal rate and regular rhythm. Pulmonary: Effort: Pulmonary effort is normal. Breath sounds: Normal breath sounds. Musculoskeletal: General: Normal range of motion. Cervical back: Normal range of motion. Skin: General: Skin is warm and dry. Neurological: Mental Status: He is alert and oriented to person, place, and time. Psychiatric: Mood and Affect: Mood normal. Judgment: Judgment normal. Predictors of anesthesia difficulty: Tolerate anesthesia in past: yes Morbid obesity? no Neck range of motion: normal Dentition: No chipped, loose, or missing teeth. Ap: CAD HTN TIA (10/2022) HLD GERD Cataract, L [facility] 04-22-2023 History and physical note Subjective Stu Edmonds is a 73 y.o. male who presents to the [facility] today for a preoperative consultation at the request of surgeon Dr Norton who plans on performing Cataract surgery, left eye on April 22. Planned anesthesia: IV sedation. Pacemaker: no Defibrillator: no Blood Thinners: no Social History Socioeconomic History Marital status: Spouse name: Not on file Number of children: Not on file Years of education: Not on file Highest education level: Not on file Occupational History Not on file Tobacco Use Smoking status: Former Types: Cigarettes Quit date: 03/10/2014 Years since quittin.1 Smokeless tobacco: Never Substance and Sexual Activity Alcohol use: Yes Alcohol/week: 6.0 standard drinks of alcohol Types: 6 Standard drinks or equivalent per week Comment: 6-8 beers/day Drug use: No Sexual activity: Not on file Other Topics Concern Not on file Social History Narrative Not on file Social Determinants of Health Financial Resource Strain: Not on file Food Insecurity: Not on file Transportation Needs: Not on file Physical Activity: Not on file Stress: Not on file Social Connections: Not on file Intimate Partner Violence: Not on file Housing Stability: Not on file Past Medical History: Diagnosis Date CAD (coronary artery disease) GERD (gastroesophageal reflux disease) Hyperlipidemia Hypertension Past Surgical History: Procedure Laterality Date CARDIAC SURGERY stents x3 CATARACT EXTRACTION W/ INTRAOCULAR LENS IMPLANT Right 10/21/2017 DR NGUYEN ROTATOR CUFF REPAIR Left UPPER GASTROINTESTINAL ENDOSCOPY N/A 03/06/2018 EGD with dilitation Allergies:No Known Allergies Vital Signs: Ht 5'9 Wt 140 Bp 121/79 Pox 98% HR 82 resp 16 temp 97.6 Physical Exam Constitutional: Appearance: Normal appearance. HENT: Mouth/Throat: Pharynx: Oropharynx is clear. Eyes: Pupils: Pupils are equal, round, and reactive to light. Cardiovascular: Rate and Rhythm: Normal rate and regular rhythm. Pulmonary: Effort: Pulmonary effort is normal. Breath sounds: Normal breath sounds. Musculoskeletal: General: Normal range of motion. Cervical back: Normal range of motion. Skin: General: Skin is warm and dry. Neurological: Mental Status: He is alert and oriented to person, place, and time. Psychiatric: Mood and Affect: Mood normal. Judgment: Judgment normal. Predictors of anesthesia difficulty: Tolerate anesthesia in past: yes Morbid obesity? no Neck range of motion: normal Dentition: No chipped, loose, or missing teeth. Ap: CAD HTN TIA (10/2022) HLD GERD Cataract, L documented in this encounter [facility] 04-18-2023 Note Patient: Stu salinas Procedure Information Date/Time: 04/22/23 1230 Procedure: PHACOEMULSIFICATION WITH INTRAOCULAR LENS INSERTION (Left: Eye) Location: [facility] / [facility] OR Surgeons: Shannon Norton MD Relevant Problems No relevant active problems Past Medical History: Past Medical History: No date: CAD (coronary artery disease) No date: GERD (gastroesophageal reflux disease) No date: Hyperlipidemia No date: Hypertension Past Surgical History: Past Surgical History: No date: CARDIAC SURGERY Comment: stents x3 10/21/2017: CATARACT EXTRACTION W/ INTRAOCULAR LENS IMPLANT; Right Comment: DR NGUYEN No date: ROTATOR CUFF REPAIR; Left 03/06/2018: UPPER GASTROINTESTINAL ENDOSCOPY; N/A Comment: EGD with dilitation Social History: TOBACCO: reports that he quit smoking about 9 years ago. His smoking use included cigarettes. He has never used smokeless tobacco. ETOH: reports current alcohol use of about 6.0 standard drinks of alcohol per week. Social History Substance and Sexual Activity Drug Use No Family History: No family history on file. Screening: unknown Clinical information reviewed: Physical Exam Airway Mallampati: II TM distance: >3 FB Neck ROM: full Mouth Open: normalendotracheal tube not in place Cardiovascular Comments: 2017- nsr LBBB Dental dentition normal Pulmonary Abdominal Anesthesia Plan patient is NPO appropriate Any family history or previous problems with anesthesia no ASA 3 MAC Any family history or previous problems with anesthesia no The patient is not a current smoker. Anesthetic plan and risks discussed with patient. OLENA Screening Labs: No results found for: WBC , HGB , HCT , MCV , PLT No results found for: NA , K , CL , CO2 , BUN , CREATININE , GLUCOSE , CALCIUM , PROT , BILIRUBINFL , ALKPHOS , AST , ALT , EGFR , GLOB No echocardiogram results found for the past 14 days 12/21/16 (Final) Narrative Ordered by an unspecified provider. [facility] 09-19-2022 Note HNO ID: [id number] Author: Emma Rivas MD Service: ? Author Type: Physician Type: Progress Notes Filed: 09/19/2022 10:12 AM Note Text: HPI: Stu presents status post laparoscopic right inguinal hernia repair with mesh. His postop pain is improving. EXAM: There were no vitals taken for this visit. Incisions are healed nicely. No evidence for infection. No evidence for recurrence or seroma. PATHOLOGY: None ASSESSMENT: (Z98.890, Z87.19) S/P laparoscopic hernia repair (primary encounter diagnosis) Stu presents status post laparoscopic right inguinal hernia repair with mesh performed on August 24. He has had an uncomplicated postoperative course. He can return to see me as needed. No orders found for this visit on 09/18/22. Emma Rivas MD [facility] 09-19-2022 History of Present illness Narrative HPI: Stu presents status post laparoscopic right inguinal hernia repair with mesh. His postop pain is improving. EXAM: There were no vitals taken for this visit. Incisions are healed nicely. No evidence for infection. No evidence for recurrence or seroma. PATHOLOGY: None ASSESSMENT: (Z98.890, Z87.19) S/P laparoscopic hernia repair (primary encounter diagnosis) Stu presents status post laparoscopic right inguinal hernia repair with mesh performed on August 24. He has had an uncomplicated postoperative course. He can return to see me as needed. No orders found for this visit on 09/18/22. 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 Staffing ROLL FORM OPERATOR: Jaclyn Martinez APRN.ROLL FORM OPERATOR Performed by: ALONSO Indications and Patient Condition Indications for airway management: anesthesia Preoxygenated: yes anesthesia circuit Patient position: sniffing Method: asleep Cricoid Pressure: No Difficult Mask: No Final Airway Details Final airway type: endotracheal airway Final Endotracheal Airway: ETT Cuffed: yes Successful intubation technique: direct laryngoscopy Devices used: intubating stylet Endotracheal tube insertion site: oral Blade: Oleksandr Blade size: #4 ETT size (mm): 8.0 Measured from: lips Placement verified by: chest auscultation and capnometry Cormack-Lehane Classification: grade I - full view of glottis Number of attempts at approach: 1 SIGNATURE: Jaclyn Martinez APRN.CRNA PATIENT NAME: Stu Edmonds DATE: August 24, 2022 TIME: 11:58 AM CSN: [id number] [facility] 08-21-2022 Note HNO ID: [id number] Author: RT Isaura(R) Service: Radiology Author Type: Technologist Type: Progress Notes Filed: 08/21/2022 5:05 PM Note Text: Radiology Service Progress Note PATIENT NAME: Stu Edmonds DATE OF SERVICE: August 21, 2022 TIME: 5:05 PM PATIENT IDENTITY VERIFICATION COMPLETED USING TWO (2) IDENTIFIERS: Name and Date of confirmed by patient verbally. FALL SCREENING: Has the patient had 2 falls in the last year or 1 fall with injury or currently using an Ambulatory Assistive Device (Walker, Cane, Wheelchair, Crutches, etc.)? No PATIENT GENDER DATA: Male PATIENT RELEVANT IMPLANT DATA REVIEWED: Not Applicable RADIOLOGY DEPARTMENT: General X-ray: Exam(s) Completed: Chest X-Ray PERIPHERAL IV DATA: Not applicable SIGNED BY: RT Isaura(R) August 21, 2022 5:05 PM [facility] 08-21-2022 History and physical note PROGRESS NOTES PATIENT NAME: Stu Edmonds Assessment ASSESSMENT/PLAN: (K40.90) Right inguinal hernia (primary encounter diagnosis) (Z87.09) H/O pneumothorax Joshua presents with worsening pain in his right inguinal hernia. He is status post laparoscopic appendectomy on July 12. At that time he was found to have an incidental right pneumothorax requiring chest tube placement. We discussed the risks of nonoperative management of hernias including incarceration and strangulation. We discussed proceeding with laparoscopic repair with mesh. Risks including bleeding, infection, nerve injury, ischemic orchitis, and recurrent hernia were explained and he would like to proceed. I would like him to obtain a chest x-ray today to evaluate for pneumothorax. Our plan is to proceed with surgery on Saturday. Office Visit on 08/21/22 XR CHEST 2V FRONTAL/LAT SUBJECTIVE CHIEF COMPLAINT: Patient presents with: Follow Up: Discuss hernia surgery, R inguinal, has gotten larger/worse INTERVAL HISTORY OF PRESENT ILLNESS: Joshua is a 72-year-old gentleman status post laparoscopic appendectomy performed on July 12. At that time he was complaining of his hernia which had started recently. He was found to have acute appendicitis. He was also found to have an incidental right pneumothorax. A chest tube was placed at that time. From that standpoint he is doing well with minimal discomfort. His inguinal hernia however has become more painful. He presents today discuss more urgent repair. He denies GI symptoms including nausea, vomiting, diarrhea, or constipation. HISTORIES: PAST MEDICAL HISTORY Diagnosis Date CAD (coronary artery disease) s/p PCI in 1999 and 2013 Dyslipidemia Hypertension Hyponatremia PAST SURGICAL HISTORY Procedure Laterality Date CARDIAC CATHETERIZATION HX 01/08/2010 LAD STENT placed LAPAROSCOPIC APPENDECTOMY 07/13/2022 Dr. Rivas PAST SURGICAL HISTORY OF 07/12/2022 Right chest tube placement. Dr. Rivas ALLERGIES: Patient has no known allergies. MEDICATIONS: Current Outpatient Medications Medication Sig losartan (COZAAR) 25 mg tablet Take 1 tablet by mouth once daily. nitroglycerin sublingual (NITROQUICK) 0.4 mg SL tablet Dissolve 1 tablet under the tongue as needed for Chest Pain. If no pain relief call 911. Omeprazole Magnesium 20 mg tablet Take 1 tablet by mouth as needed. aspirin 81 mg chewable tablet Take 1 tablet by mouth once daily. atorvastatin 80 mg tablet Take 1 tablet by mouth daily at bedtime. METOPROLOL TARTRATE 25 MG TAB Take one(1) tablet twice daily. No current facility-administered medications for this visit. FAMILY HISTORY Problem Relation Age of Onset other (cva [Other]) Mother other (leukemia [Other]) Father other (heart disease [Other]) Father other (cva [Other]) Brother Social History Tobacco Use Smoking status: Former Packs/day: 0.00 Years: 0.00 Pack years: 0.00 Types: Cigarettes Quit date: 10/08/2013 Years since quittin.8 Vaping Use Vaping Use: Never used Substance Use Topics Alcohol use: Yes Alcohol/week: 20.0 - 25.0 standard drinks Types: 8 - 10 Cans of Beer (12oz) per week Comment: daily Drug use: No OBJECTIVE PHYSICAL EXAM: There were no vitals taken for this visit. General: Well developed, well-nourished, in no distress HEENT: Normocephalic, atraumatic. Extraocular movements intact. Sclera are nonicteric. Heart: Regular rate and rhythm, no murmur Lungs: Clear to auscultation, without wheezes Abdomen: Soft, non tender, positive bowel sounds, no masses, tender right inguinal hernia, no evidence for left inguinal hernia Rectal: Not evaluated Extremities: No edema, Neurologic: Alert, oriented, and appropriate. DATA: Diagnostic tests reviewed for today's visit: Chest x-ray pending Emma Rivas MD documented in this encounter [facility] 08-21-2022 Note HNO ID: [id number] Author: Emma Rivas MD Service: ? Author Type: Physician Type: Procedures Filed: 08/21/2022 6:23 PM Note Text: Anticipated Surgical Procedure/ CPT Code: laparoscopic right inguinal hernia repair with mesh - 84498-550 Anticipated Anesthetic: General Patient weight: There were no vitals taken for this visit. BMI: There is no height or weight on file to calculate BMI. Planned antibiotic: SCDs needed: Yes Unit Technician Needed: Yes Pre Op Clearance: PAT Anticoagulation: No Diabetic: No Location: [facility] 08-21-2022 History of Present illness Narrative Radiology Service Progress Note PATIENT NAME: Stu Edmonds DATE OF SERVICE: August 21, 2022 TIME: 5:05 PM PATIENT IDENTITY VERIFICATION COMPLETED USING TWO (2) IDENTIFIERS: Name and Date of confirmed by patient verbally. FALL SCREENING: Has the patient had 2 falls in the last year or 1 fall with injury or currently using an Ambulatory Assistive Device (Walker, Cane, Wheelchair, Crutches, etc.)? No PATIENT GENDER DATA: Male PATIENT RELEVANT IMPLANT DATA REVIEWED: Not Applicable RADIOLOGY DEPARTMENT: General X-ray: Exam(s) Completed: Chest X-Ray PERIPHERAL IV DATA: Not applicable SIGNED BY: RT Isaura(R) August 21, 2022 5:05 PM documented in this encounter [facility] 08-21-2022 Miscellaneous Notes Patient is having surgery Thursday 08/24 needs PAT documented in this encounter [facility] 08-21-2022 Procedure note Anticipated Surgical Procedure/ CPT Code: laparoscopic right inguinal hernia repair with mesh - [id number] Anticipated Anesthetic: General Patient weight: There were no vitals taken for this visit. BMI: There is no height or weight on file to calculate BMI. Planned antibiotic: SCDs needed: Yes Unit Technician Needed: Yes Pre Op Clearance: PAT Anticoagulation: No Diabetic: No Location: [facility] documented in this encounter [facility] 07-27-2022 Note HNO ID: [id number] Author: Sukhjinder Lan PA-C Service: ? Author Type: Physician Unit Technician Type: Progress Notes Filed: 07/27/2022 3:03 PM Note Text: IMPRESSION: Patient is s/p a laparoscopic appendectomy. PLAN: Post-op patient instructions were reviewed with the patient. I have explained to Mr. Edmonds that he may return to normal activity. I have encouraged him to contact me at any time with any questions or concerns that may arise. Patient has a right inguinal hernia. I will discuss timing for surgical repair with Dr. Rivas. We will reach out to him regarding timing and type of repair. Follow up: for hernia repair SUBJECTIVE: On 07/12/22 he underwent a laparoscopic appendectomy with Dr. Emma Rivas. Patient presents now for follow up. Patient complaints: Post operative soreness, increased hernia pain Patient denies: Nausea, Constipation, and Difficulty voiding OBJECTIVE: General Appearance: alert, oriented and in no acute distress Abdomen: soft, Right inguinal hernia, reducible, tender to palpation Incision: well approximated, no signs or symptoms of infection , and clean, dry and intact Surgical Pathology: Appendix, appendectomy: - Dilated appendix with diverticular disease and acute appendicitis. - Negative for malignancy. Sukhjinder Lan PA-C 07/27/2022 [facility] 07-20-[address] Rivas, Called patient and informed him that his pneumothorax has resolved. Patient verbalizes understanding and has no further questions or concerns at this time. Encounter closed. documented in this encounter [facility] 07-18-2022 Note HNO ID: [id number] Author: RT Kate(Deepak) Service: Radiology Author Type: Toolroom Attendant Type: Progress Notes Filed: 07/18/2022 11:48 AM Note Text: Radiology Service Progress Note PATIENT NAME: Stu Edmonds DATE OF SERVICE: July 18, 2022 TIME: 11:48 AM PATIENT IDENTITY VERIFICATION COMPLETED USING TWO (2) IDENTIFIERS: Name and Date of confirmed by patient verbally. FALL SCREENING: Has the patient had 2 falls in the last year or 1 fall with injury or currently using an Ambulatory Assistive Device (Walker, Cane, Wheelchair, Crutches, etc.)? No PATIENT GENDER DATA: Male PATIENT RELEVANT IMPLANT DATA REVIEWED: Not Applicable RADIOLOGY DEPARTMENT: General X-ray: Exam(s) Completed: Chest X-Ray PERIPHERAL IV DATA: Not applicable SIGNED BY: RT Kate(R) July 18, 2022 11:48 AM [facility] 07-18-2022 History of Present illness Narrative Radiology Service Progress Note PATIENT NAME: Stu Edmonds DATE OF SERVICE: July 18, 2022 TIME: 11:48 AM PATIENT IDENTITY VERIFICATION COMPLETED USING TWO (2) IDENTIFIERS: Name and Date of confirmed by patient verbally. FALL SCREENING: Has the patient had 2 falls in the last year or 1 fall with injury or currently using an Ambulatory Assistive Device (Walker, Cane, Wheelchair, Crutches, etc.)? No PATIENT GENDER DATA: Male PATIENT RELEVANT IMPLANT DATA REVIEWED: Not Applicable RADIOLOGY DEPARTMENT: General X-ray: Exam(s) Completed: Chest X-Ray PERIPHERAL IV DATA: Not applicable SIGNED BY: RT Kate(Deepak) July 18, 2022 11:48 AM documented in this encounter [facility] 07-17-2022 Miscellaneous Notes Spoke with patient and advised of information per MD. Patient verbalized understanding. He states that will do chest xray and stool specimen at the [facility] tomorrow morning. No further questions at this time. Advised to call if any future problems or concerns. MD message noted. Encounter closed. Agree with C diff Patient call. C/O frequent BMs- loose, slimy stool about 10 x a day for past two days. States he did start having formed stool the dauy after his surgery. States he cannot get away from the house to go get his chest xray done. C/O pain to LLQ and mid abdomen and then has to have a BM. Rates pain 6/10 C/O abdomen looking bloated. Appetite is ok has some nausea. Thinks he has a slight fever... feels warm- thermometer is not working well. Is not currently on ATB. He does not feel that he has been around anyone with a GI bug. Please advise. Do you want him to get stool for C Diff? documented in this encounter [facility] 07-13-2022 Note HNO ID: [id number] Author: Emma Rivas MD Service: General Surgery Author Type: Physician Type: Progress Notes Filed: 07/13/2022 11:39 AM Note Text: SURGICAL SERVICES POSTOP PROGRESS NOTE SERVICE DATE: 07/13/2022 SERVICE TIME: 11:34 AM POD #: 1 s/p lap appy (gangrenous appendicitis) and right chest tube placement for spontaneous ptx Subjective INTERVAL HISTORY OF PRESENT ILLNESS: Feeling better. Current Facility-Administered Medications Medication Dose Route Frequency iv contrast (radiology procedure) INTRAVENOUS DIRECTED PRN atorvastatin 80 mg tab(s) (LIPITOR) 80 mg ORAL AT BEDTIME losartan 25 mg tab(s) (COZAAR) 25 mg ORAL DAILY metoprolol tartrate (short acting) 25 mg tab(s) (LOPRESSOR) 25 mg ORAL BID aspirin 81 mg chewable tab(s) 81 mg ORAL DAILY NaCl 0.9% iv flush bag 20 mL INTRAVENOUS PRN lactated ringers iv infusion 75 mL/hr INTRAVENOUS CONTINUOUS keTORolac 15 mg injection (TORADOL) 15 mg INTRAVENOUS q 6 H acetaminophen 1,000 mg tab(s) (TYLENOL) 1,000 mg ORAL q 6 H oxyCODONE IR 5-10 mg tab(s) (ROXICODONE) 5-10 mg ORAL q 6 H PRN morphine 2 mg injection 2 mg INTRAVENOUS q 4 H PRN prochlorperazine 5 mg injection (COMPAZINE) 5 mg INTRAVENOUS q 6 H PRN Or prochlorperazine 5 mg tab(s) (COMPAZINE) 5 mg ORAL q 6 H PRN Objective PHYSICAL EXAM: BP 155/82 Pulse 68 Temp (Src) 98.4 (Temporal) Resp 18 Wt 136 lb (61.7kg) SpO2 96% O2 Therapy: Room Air Physical Exam Performed No crepitus Abd soft DATA: Diagnostic tests reviewed for today's visit: Most recent labs and imaging results. CXR: IMPRESSION: Unchanged size of a small right apical pneumothorax. Bilateral basilar atelectasis. Assessment/Plan Patient Active Hospital Problem List: Pneumothorax on right (07/12/2022) Acute appendicitis with localized peritonitis and gangrene, without perforation or abscess (07/12/2022) Primary spontaneous pneumothorax (07/12/2022) Medication and Non-Pharmacologic VTE Prophylaxis/Anticoagulants Anticoagulant AND Antiplatelet Medications (From admission, onward) Start Dose Route Frequency Last Action Ordered Stop 07/12/22 1800 aspirin 81 mg chewable tab(s) 81 mg ORAL DAILY Given, 07/13 0911 07/12/22 1756 -- 07/12/22 1930 pneumatic compression stockings ([place] 07/12/22 1800 vte pharmacologic prophylaxis contraindicated ([place] 07/12/22 1800 pneumatic compression stockings [place] 07/12/22 1800 activity - mobilize patient ([place] VTE Prophylaxis: VTE prophylaxis appropriate POSTOP PLANS: - chest tube placed to waterseal. Will repeat CXR at noon. - appreciate Medicine Consult. - diet as tolerated. Dr. Villagomez to cover weekend Jerome: No Jerome Present DVT Prophylaxis: Intermittent pneumatic compression device (IPCD) Reason for Continuing Antibiotics: There is no need to continue antibiotics SIGNATURE: Emma Rivas MD PATIENT NAME: Stu Edmonds DATE: July 13, 2022 TIME: 11:34 AM ETX#[id number] [facility] 07-12-2022 Note HNO ID: [id number] Author: Patel Newton APRN.ROLL FORM OPERATOR Service: Anesthesiology Author Type: Nurse Director Transportation Type: Anesthesia Procedure Notes Filed: 07/12/2022 4:21 PM Note Text: ANESTHESIOLOGY PROCEDURE NOTE Airway General Information Procedure Start Time/Medication Administration: 07/12/2022 3:34 PM Procedure End Time: 07/12/2022 3:37 AM Patient location during procedure: OR Timeout Performed Pre-procedure: timeout performed Consent Obtained: Yes Patient identity confirmed: arm band and patient Staffing ROLL FORM OPERATOR: Patel Newton APRN.ROLL FORM OPERATOR Indications and Patient Condition Indications for airway management: anesthesia Preoxygenated: yes anesthesia circuit Patient position: sniffing Method: asleep Cricoid Pressure: Yes Manual In-Line Stabilization: No Difficult Mask: No Final Airway Details Final airway type: endotracheal airway Final Endotracheal Airway: ETT Cuffed: yes Successful intubation technique: direct laryngoscopy Endotracheal tube insertion site: oral Blade: Oleksandr Blade size: #4 ETT size (mm): 7.5 Measured from: gums Measurement (cm): 23 Placement verified by: chest auscultation and capnometry Cormack-Lehane Classification: grade IIa - partial view of glottis Number of attempts at approach: 1 Failed airway: no Unrecognized esophageal intubation: no Airway not difficult SIGNATURE: Patel Newton APRN.CRNA PATIENT NAME: Stu Edmonds DATE: July 12, 2022 TIME: 4:20 PM CSN: [id number] [facility] 07-11-2022 Miscellaneous Notes Radiology Service Progress Note PATIENT NAME: Stu Edmonds DATE OF SERVICE: July 11, 2022 TIME: 1:24 PM PATIENT IDENTITY VERIFICATION COMPLETED USING TWO (2) IDENTIFIERS: Name and Date of confirmed by patient verbally and Name and Date of confirmed by identification band. FALL SCREENING: Has the patient had 2 falls in the last year or 1 fall with injury or currently using an Ambulatory Assistive Device (Walker, Cane, Wheelchair, Crutches, etc.)? No PATIENT GENDER DATA: Male PATIENT RELEVANT IMPLANT DATA REVIEWED: Not Applicable RADIOLOGY DEPARTMENT: CT; Exam(s) Completed: Pelvis PERIPHERAL IV DATA: Not applicable SIGNED BY: JHON Meyers July 11, 2022 1:24 PM documented in this encounter [facility] 07-09-2022 Note HNO ID: [id number] Author: Duke Franklin MD Service: ? Author Type: Physician Type: Progress Notes Filed: 07/09/2022 2:42 PM Note Text: [facility] UROLOGY NEW PATIENT CLINIC NOTE PATIENT INFO: Stu Edmonds (72 year old) Referred by: No referring provider defined for this encounter. 07/09/2022 UROLOGY DIAGNOSES: 1. Right inguinal hernia - ICD9: 550.90, ICD10: K40.90 CHIEF COMPLAINT: Groin pain HPI: 72 year old, male presents for evaluation a lump of the RIGHT inguinal area. Started 1 week ago. No prior history. Severe pain Causing N/V Hx of vasectomy Desires fertility: No Therapies tried: None Scrotal US: None Genitourinary history: Hx Mumps orchitis, trauma, or undescended testis: none Hx stone disease: none Hx UTI/prostatitis/epididimitis/STI: none ROS: Sexual frequency/libido:+ED Urinary sx: none Hematuria: none PMH: PAST MEDICAL HISTORY Diagnosis Date CAD (coronary artery disease) s/p PCI in 1999 and 2013 Dyslipidemia Hypertension Hyponatremia PSH: PAST SURGICAL HISTORY Procedure Laterality Date CARDIAC CATHETERIZATION HX 01/2010 LAD STENT placed SH: Social History Tobacco Use Smoking status: Former Packs/day: 0.00 Years: 0.00 Pack years: 0.00 Types: Cigarettes Quit date: 10/08/2013 Years since quittin.7 Substance Use Topics Alcohol use: Yes Alcohol/week: 20.0 - 25.0 standard drinks Types: 8 - 10 Cans of Beer (12oz) per week Comment: daily Drug use: No FH: FAMILY HISTORY Problem Relation Age of Onset other (cva [Other]) Mother other (leukemia [Other]) Father other (heart disease [Other]) Father other (cva [Other]) Brother REVIEW OF SYSTEMS: Review of Systems: Constitutional: No weakness, fever/chills, unexplained weight change Psychiatric: Stable mood Skin: No rashes or lesions HEENT: No blurred vision or double vision. No severe or worsening headaches. Sense of smell intact Neck: No masses or pain Chest: No shortness of breath or cough. No history of recurrent pneumonia, bronchitis, or sinustitis. CVS: No chest pains or palpatations. No history of cardiovascular disease. GI: No nausea, vomiting or abdominal pain Neurologic: No weakness or sensory changes : see above Musculoskeletal: Stable All other systems reviewed and noncontributory Allergy: Patient has no known allergies. MEDICATIONS: Current Outpatient Medications Medication Sig Dispense Refill losartan (COZAAR) 25 mg tablet Take 1 tablet by mouth once daily. 30 tablet 2 nitroglycerin sublingual (NITROQUICK) 0.4 mg SL tablet Dissolve 1 tablet under the tongue as needed for Chest Pain. If no pain relief call 911. 25 Bottle of 25 0 Omeprazole Magnesium (PRILOSEC OTC) 20 mg tablet Take 1 tablet by mouth as needed. aspirin 81 mg chewable tablet Take 1 tablet by mouth once daily. 90 tablet 3 atorvastatin 80 mg tablet Take 1 tablet by mouth daily at bedtime. 90 tablet 3 METOPROLOL TARTRATE 25 MG TAB Take one(1) tablet twice daily. 60 5 No current facility-administered medications for this visit. PHYSICAL EXAM: Ht 175.3 cm (5' 9 ) Wt 61.7 kg (136 lb) BMI 20.08 kg/m? Body mass index is 20.08 kg/m?. General Appearance/ Constitutional: Well developed, well nourished, and in no apparent distress HEENT: Normal Neck: Lymph Nodes: Normal Cardiac: Normal Breast: Not examined Pulmonary: Ascultation: Not examined Effort: Normal GI: Soft, Non-tender, Non-distended and Costovertebral angle tenderness absent Peripheral Vascular: Not examined Extremities: Cyanosis absent, Clubbing absent and Edema absent Skin: Normal Neurologic: Normal, Grossly non-focal, Alert and oriented and Affect appropriate (MALE): Penis: Normal without external lesions and Circumcised Testicles: Normal Scrotum: Normal RIGHT inguinal hernia? TTP No results found for: PSA, PSAPER DIAGNOSES: 1. Right inguinal hernia - ICD9: 550.90, ICD10: K40.90 IMPRESSION/PLAN: 72 year old, male with RIGHT inguinal pain. UA/Urine Culture: Negative Discussed conservative measures including antinflammatories, scrotal support. Likely R inguinal hernia No testicular pain, etc Pain is severe discussed going to ER vs Stat CT - Couple would like to proceed with CT Pending results, follow up with General Surgery Duke Franklin MD [facility] 07-09-2022 History of Present illness Narrative Images from the original note were not included. [facility] UROLOGY NEW PATIENT CLINIC NOTE PATIENT INFO: Stu Edmonds (72 year old) Referred by: No referring provider defined for this encounter. 07/09/2022 UROLOGY DIAGNOSES: 1. Right inguinal hernia - ICD9: 550.90, ICD10: K40.90 CHIEF COMPLAINT: Groin pain HPI: 72 year old, male presents for evaluation a lump of the RIGHT inguinal area. Started 1 week ago. No prior history. Severe pain Causing N/V Hx of vasectomy Desires fertility: No Therapies tried: None Scrotal US: None Genitourinary history: Hx Mumps orchitis, trauma, or undescended testis: none Hx stone disease: none Hx UTI/prostatitis/epididimitis/STI: none ROS: Sexual frequency/libido:+ED Urinary sx: none Hematuria: none PMH: PAST MEDICAL HISTORY Diagnosis Date CAD (coronary artery disease) s/p PCI in 1999 and 2013 Dyslipidemia Hypertension Hyponatremia PSH: PAST SURGICAL HISTORY Procedure Laterality Date CARDIAC CATHETERIZATION HX 01/2010 LAD STENT placed SH: Social History Tobacco Use Smoking status: Former Packs/day: 0.00 Years: 0.00 Pack years: 0.00 Types: Cigarettes Quit date: 10/08/2013 Years since quittin.7 Substance Use Topics Alcohol use: Yes Alcohol/week: 20.0 - 25.0 standard drinks Types: 8 - 10 Cans of Beer (12oz) per week Comment: daily Drug use: No FH: FAMILY HISTORY Problem Relation Age of Onset other (cva [Other]) Mother other (leukemia [Other]) Father other (heart disease [Other]) Father other (cva [Other]) Brother REVIEW OF SYSTEMS: Review of Systems: Constitutional: No weakness, fever/chills, unexplained weight change Psychiatric: Stable mood Skin: No rashes or lesions HEENT: No blurred vision or double vision. No severe or worsening headaches. Sense of smell intact Neck: No masses or pain Chest: No shortness of breath or cough. No history of recurrent pneumonia, bronchitis, or sinustitis. CVS: No chest pains or palpatations. No history of cardiovascular disease. GI: No nausea, vomiting or abdominal pain Neurologic: No weakness or sensory changes : see above Musculoskeletal: Stable All other systems reviewed and noncontributory Allergy: Patient has no known allergies. MEDICATIONS: Current Outpatient Medications Medication Sig Dispense Refill losartan (COZAAR) 25 mg tablet Take 1 tablet by mouth once daily. 30 tablet 2 nitroglycerin sublingual (NITROQUICK) 0.4 mg SL tablet Dissolve 1 tablet under the tongue as needed for Chest Pain. If no pain relief call 911. 25 Bottle of 25 0 Omeprazole Magnesium (PRILOSEC OTC) 20 mg tablet Take 1 tablet by mouth as needed. aspirin 81 mg chewable tablet Take 1 tablet by mouth once daily. 90 tablet 3 atorvastatin 80 mg tablet Take 1 tablet by mouth daily at bedtime. 90 tablet 3 METOPROLOL TARTRATE 25 MG TAB Take one(1) tablet twice daily. 60 5 No current facility-administered medications for this visit. PHYSICAL EXAM: Ht 175.3 cm (5' 9 ) Wt 61.7 kg (136 lb) BMI 20.08 kg/m Body mass index is 20.08 kg/m . General Appearance/ Constitutional: Well developed, well nourished, and in no apparent distress HEENT: Normal Neck: Lymph Nodes: Normal Cardiac: Normal Breast: Not examined Pulmonary: Ascultation: Not examined Effort: Normal GI: Soft, Non-tender, Non-distended and Costovertebral angle tenderness absent Peripheral Vascular: Not examined Extremities: Cyanosis absent, Clubbing absent and Edema absent Skin: Normal Neurologic: Normal, Grossly non-focal, Alert and oriented and Affect appropriate (MALE): Penis: Normal without external lesions and Circumcised Testicles: Normal Scrotum: Normal RIGHT inguinal hernia? TTP No results found for: PSA, PSAPER DIAGNOSES: 1. Right inguinal hernia - ICD9: 550.90, ICD10: K40.90 IMPRESSION/PLAN: 72 year old, male with RIGHT inguinal pain. UA/Urine Culture: Negative Discussed conservative measures including antinflammatories, scrotal support. Likely R inguinal hernia No testicular pain, etc Pain is severe discussed going to ER vs Stat CT - Couple would like to proceed with CT Pending results, follow up with General Surgery Duke Franklin MD documented in this encounter [facility] documented as of this encounter (statuses as of 07/09/2022) [facility] History of Past illness Narrative* Problem Noted Date Resolved Date ST elevation myocardial infa rction (STEMI) of inferior wall, initial episode of care 10/17/2013 07/07/2015 Overview: 10/17 s/p status post urgent PCI to the lateral circumflex (second obtuse marginal, OM2) with a 3.0x24mm Promus Premier Everolimus-Eluting Stent (EES) for NSTEMI On aspirin and plavix and lopressor Will need echo prior to discharge documented as of this encounter (statuses as of 07/12/2022) [facility] History of Past illness Narrative* Problem Noted Date Resolved Date ST elevation myocardial infa rction (STEMI) of inferior wall, initial episode of care 10/17/2013 07/07/2015 Overview: 10/17 s/p status post urgent PCI to the lateral circumflex (second obtuse marginal, OM2) with a 3.0x24mm Promus Premier Everolimus-Eluting Stent (EES) for NSTEMI On aspirin and plavix and lopressor Will need echo prior to discharge documented as of this encounter (statuses as of 07/12/2022) [facility] History of Past illness Narrative* Problem Noted Date Resolved Date ST elevation myocardial infa rction (STEMI) of inferior wall, initial episode of care 10/17/2013 07/07/2015 Overview: 10/17 s/p status post urgent PCI to the lateral circumflex (second obtuse marginal, OM2) with a 3.0x24mm Promus Premier Everolimus-Eluting Stent (EES) for NSTEMI On aspirin and plavix and lopressor Will need echo prior to discharge documented as of this encounter (statuses as of 07/18/2022) [facility] History of Past illness Narrative* Problem Noted Date Resolved Date ST elevation myocardial infa rction (STEMI) of inferior wall, initial episode of care 10/17/2013 07/07/2015 Overview: 10/17 s/p status post urgent PCI to the lateral circumflex (second obtuse marginal, OM2) with a 3.0x24mm Promus Premier Everolimus-Eluting Stent (EES) for NSTEMI On aspirin and plavix and lopressor Will need echo prior to discharge documented as of this encounter (statuses as of 07/19/2022) [facility] History of Past illness Narrative* Problem Noted Date Resolved Date ST elevation myocardial infa rction (STEMI) of inferior wall, initial episode of care 10/17/2013 07/07/2015 Overview: 5/10 s/p status post urgent PCI to the lateral circumflex (second obtuse marginal, OM2) with a 3.0x24mm Promus Premier Everolimus-Eluting Stent (EES) for NSTEMI On aspirin and plavix and lopressor Will need echo prior to discharge documented as of this encounter (statuses as of 07/24/2022) [facility] History of Past illness Narrative* Problem Noted Date Resolved Date ST elevation myocardial infa rction (STEMI) of inferior wall, initial episode of care 10/17/2013 07/07/2015 Overview: 5/10 s/p status post urgent PCI to the lateral circumflex (second obtuse marginal, OM2) with a 3.0x24mm Promus Premier Everolimus-Eluting Stent (EES) for NSTEMI On aspirin and plavix and lopressor Will need echo prior to discharge documented as of this encounter (statuses as of 08/22/2022) [facility] History of Past illness Narrative* Problem Noted Date Resolved Date ST elevation myocardial infa rction (STEMI) of inferior wall, initial episode of care 10/17/2013 07/07/2015 Overview: 5/10 s/p status post urgent PCI to the lateral circumflex (second obtuse marginal, OM2) with a 3.0x24mm Promus Premier Everolimus-Eluting Stent (EES) for NSTEMI On aspirin and plavix and lopressor Will need echo prior to discharge documented as of this encounter (statuses as of 08/22/2022) [facility] History of Past illness Narrative* Problem Noted Date Resolved Date ST elevation myocardial infa rction (STEMI) of inferior wall, initial episode of care 10/17/2013 07/07/2015 Overview: 5/10 s/p status post urgent PCI to the lateral circumflex (second obtuse marginal, OM2) with a 3.0x24mm Promus Premier Everolimus-Eluting Stent (EES) for NSTEMI On aspirin and plavix and lopressor Will need echo prior to discharge documented as of this encounter (statuses as of 08/23/2022) [facility] History of Past illness Narrative* Problem Noted Date Resolved Date ST elevation myocardial infa rction (STEMI) of inferior wall, initial episode of care 10/17/2013 07/07/2015 Overview: 10/17 s/p status post urgent PCI to the lateral circumflex (second obtuse marginal, OM2) with a 3.0x24mm Promus Premier Everolimus-Eluting Stent (EES) for NSTEMI On aspirin and plavix and lopressor Will need echo prior to discharge documented as of this encounter (statuses as of 09/20/2022) [facility] Right inguinal hernia- Primary Inguinal hernia without mention of obstruction or gangrene, unilateral or unspecified, (not specified as recurrent) [facility] Diagnosis Right inguinal hernia Inguinal hernia without mention of obstruction or gangrene, unilateral or unspecified, (not specified as recurrent) [facility] Diagnosis Diarrhea, unspecified type- Primary [facility] Diagnosis Non-recurrent bilateral inguinal hernia without obstruction or gangrene Pneumothorax on right Other pneumothorax Acute appendicitis with localized peritonitis and gangrene, without perforation or abscess [facility] Diagnosis Right inguinal hernia- Primary Inguinal hernia without mention of obstruction or gangrene, unilateral or unspecified, (not specified as recurrent) H/O pneumothorax Personal history of other diseases of respiratory system documented [facility] Diagnosis H/O pneumothorax Personal history of other diseases of respiratory system [facility] S/P laparoscopic hernia repair- Primary Other postprocedural status documented [facility] this [facility] Diagnosis Combined forms of age-related cataract of left eye- Primary documented in this encounter [facility] Summary Purpose Family History No Family History Records FoundNo Family History Records FoundNo Family History Records FoundNo Family History Records FoundNo Family History Records FoundNo Family History Records FoundNo Family History Records Found Advance Directives No Advanced Directives Records FoundLatest Code Status on File Code Status Date Activated Date Inactivated Comments Full Code 04/22/2023 11:51 AM 04/22/2023 4:54 PM Reason for Referral Specialty Diagnoses / Procedures Referred By Contac t Referred To Contact General Surgery Diagnoses Right inguinal hernia Procedures CONSULT TO GENERAL SURGERY OFFICE/OUTPATIENT [facility] 60-74 MINUTES Duke Franklin MD [address] [place] [address] Referral ID Status Reason Start Date Expiration Date Visits Requested Visits Authorized [id number] Authorized PCP Requested Referral 07/09/2022 07/09/2023 1 1 Specialty Diagnoses / Procedures Referred By Contac t Referred To Contact CT IMAGING Diagnoses Right inguinal hernia Procedures CT PELVIS WO IVCON CT PELVIS W/O CONTRAST MATERIAL Duke Franklin MD [address] [place] [address] Ct Imaging Referral ID Status Reason Start Date Expiration Date Visits Requested Visits Authorized [id number] Authorized Auto-Generat ed Referral 07/09/2022 08/08/2023 1 1 Referral ID Status Reason Start Date Expiration Date V isits Requested Visits Authorized [id number] Closed Auto-Generate d Referral 07/09/2022 08/08/2023 1 1 Additional Source Comments (unrecognized sect ion and content) No Status Records FoundNo Status Records FoundNo Status Records FoundNo Status Records FoundNo Status Records FoundNo Status Records FoundNo Status Records Found INFORMATION SOURCE (unrecogn ized section and content) DATE CREATED AUTHOR AUTHOR'S ORGANIZ ATION 12/03/2017 [facility] DATE CREATED AUTHOR AUTHOR'S ORGANIZ ATION 04/14/2018 [facility] DATE CREATED AUTHOR AUTHOR'S ORGANIZ ATION 05/11/2018 [facility] DATE CREATED AUTHOR AUTHOR'S ORGANIZ ATION 09/23/2022 [facility] DATE CREATED AUTHOR AUTHOR'S ORGANIZ ATION 10/16/2022 [facility] DATE CREATED AUTHOR AUTHOR'S ORGANIZ ATION 04/23/2023 [facility] Source Comments (unrecognize d section and content) In the event this informatio n is protected by the Federal Confidentiality of Alcohol and Drug Abuse Patient Records regulations: The Federal rules restrict any use of the information to criminally investigate or prosecute any alcohol or drug abuse patient.[facility] the event this information is protected by the Federal Confidentiality of Alcohol and Drug Abuse Patient Records regulations: The Federal rules restrict any use of the information to criminally investigate or prosecute any alcohol or drug abuse patient.[facility] the event this information is protected by the Federal Confidentiality of Alcohol and Drug Abuse Patient Records regulations: The Federal rules restrict any use of the information to criminally investigate or prosecute any alcohol or drug abuse patient.[facility] the event this information is protected by the Federal Confidentiality of Alcohol and Drug Abuse Patient Records regulations: The Federal rules restrict any use of the information to criminally investigate or prosecute any alcohol or drug abuse patient.[facility] the event this information is protected by the Federal Confidentiality of Alcohol and Drug Abuse Patient Records regulations: The Federal rules restrict any use of the information to criminally investigate or prosecute any alcohol or drug abuse patient.[facility] the event this information is protected by the Federal Confidentiality of Alcohol and Drug Abuse Patient Records regulations: The Federal rules restrict any use of the information to criminally investigate or prosecute any alcohol or drug abuse patient.[facility] the event this information is protected by the Federal Confidentiality of Alcohol and Drug Abuse Patient Records regulations: The Federal rules restrict any use of the information to criminally investigate or prosecute any alcohol or drug abuse patient.[facility] the event this information is protected by the Federal Confidentiality of Alcohol and Drug Abuse Patient Records regulations: The Federal rules restrict any use of the information to criminally investigate or prosecute any alcohol or drug abuse patient.[facility] the event this information is protected by the Federal Confidentiality of Alcohol and Drug Abuse Patient Records regulations: The Federal rules restrict any use of the information to criminally investigate or prosecute any alcohol or drug abuse patient.[facility] the event this information is protected by the Federal Confidentiality of Alcohol and Drug Abuse Patient Records regulations: The Federal rules restrict any use of the information to criminally investigate or prosecute any alcohol or drug abuse patient.[facility] Reason for Visit (unrecogniz ed section and content) Specialty Diagnoses / Procedures Referred By Dennis miranda Referred To Contact CT IMAGING Diagnoses Right inguinal hernia Procedures CT PELVIS WO IVCON CT PELVIS W/O CONTRAST MATERIAL Duke Franklin MD [address] [place] [address] Ct Imaging Referral ID Status Reason Start Date Expiration Date V isits Requested Visits Authorized [id number] Closed Auto-Generate d Referral 07/09/2022 08/08/2023 1 1 Reason Comments Abdominal Pain/ Frequent Stool Reason Comments Chest Xray Follow up Call Reason Comments Follow Up Discuss hernia surge ry, R inguinal, has gotten larger/worse Reason Comments Follow Up Phone Call Reason Comments Surgical Followup Care Teams (unrecognized sec tion and content) Patrol Judge Relationship Specialty Start Date End Date Cuauhtemoc Walters, HARDY.HOME SERVICE ADVISOR [address] [place] [address] PCP - General 10/18/13 Usama Siddiqi MD [address] [place] [address] Primary Staff Physician Cardiology 08/26/18 Patrol Judge Relationship Specialty Start Date End Date Cuauhtemoc Walters, CORN MILLER.HOME SERVICE ADVISOR [address] [place] [address] PCP - General 10/18/13 Usama Siddiqi MD [address] [place] [address] Primary Staff Physician Cardiology 08/26/18 Patrol Judge Relationship Specialty Start Date End Date Cuauhtemoc Walters, CORN MILLER.HOME SERVICE ADVISOR [address] [place] [address] PCP - General 10/18/13 Usama Siddiqi MD [address] [place] [address] Primary Staff Physician Cardiology 08/26/18 Patrol Judge Relationship Specialty Start Date End Date Cuauhtemoc Walters, CORN MILLER.HOME SERVICE ADVISOR [address] [place] [address] PCP - General 10/18/13 Usama Siddiqi MD [address] [place] [address] Primary Staff Physician Cardiology 08/26/18 Patrol Judge Relationship Specialty Start Date End Date Cuauhtemoc Walters, CORN MILLER.HOME SERVICE ADVISOR [address] [place] [address] PCP - General 10/18/13 Usama Siddiqi MD [address] [place] [address] Primary Staff Physician Cardiology 08/26/18 Patrol Judge Relationship Specialty Start Date End Date Cuauhtemoc Walters, CORN MILLER.HOME SERVICE ADVISOR [address] [place] [address] PCP - General 10/18/13 Usama Siddiqi MD [address] [place] [address] Primary Staff Physician Cardiology 08/26/18 Patrol Judge Relationship Specialty Start Date End Date Joseluis Cuauhtemoc Abbott, CORN MILLER.HOME SERVICE ADVISOR [address] [facility] [address] [place], [place] [id number] PCP - General 10/18/13 Usama Siddiqi MD [address] [place] [address] Primary Staff Physician Cardiology 08/26/18 Patrol Judge Relationship Specialty Start Date End Date Joseluis Cuauhtemoc [address] [place] [address] PCP - General 05/03/15 FOR RECORDS PERTAINING TO PATIENTS WHO ARE OR HAVE BEEN ENROLLED IN A CHEMICAL DEPENDENCY/SUBSTANCEABUSE PROGRAM, SOME INFORMATION MAY BE OMITTED. This clinical summary was aggregated from multiple sources. Caution should be exercised in using it in the provision of clinical care. This summary normalizes information from multiple sources, and as a consequence, information in this document may materially change the coding, format and clinical context of patient data. In addition, data may be omitted in some cases. CLINICAL DECISIONS SHOULD BE BASED ON THE PRIMARY CLINICAL RECORDS. [facility] [employer] [facility]. provides no warranty or guarantee of the accuracy or completeness of information in this document.
[2023-06-17 22:08] LABS: Absolute Lymphocyte Count 1.16 X10^3/uL (0.83-4.51); Basophil# 0.11 X10^3/uL; Basophil% 1.3 % (0-1); Eosinophil# 0.05 X10^3/uL; Eosinophils% 0.6 % (0-5); Hematocrit 45.6 % (40-54); Hemoglobin 15.4 g/dL (13.0-16.5); Lymphocyte # 1.16 X10^3/ul (0.83-4.51); Lymphocyte % 13.9 % (19-41); Mean Corp Hgb Conc 33.8 g/dL (32-36); Mean Corpuscular Hgb 31.6 pg (27.0-32.0); Mean Corpuscular Volume 93.6 fL (80-94); Mean Platelet Vol. 9.8 fl (6.2-12.0); Monocyte# 1.05 X10^3/uL; Monocyte% 12.6 % (0-10); NRBC Flagged by Analyzer 0 % (0-5); Neutrophil # 5.96 X10^3/uL (2.7-7.7); Neutrophil % 71.2 % (47-70); Platelet Count 404 K/mm3 (150-450); RBC Distribution Width CV 11.9 % (11.6-14.6); Red Blood Count 4.87 M/mm3 (4.6-6.2); White Blood Count 8.4 K/mm3 (4.4-11.0)
[2023-06-17 22:17] LABS: Erythrocyte Sedimentation Rate 13 mm/hr (0-20)
[2023-06-17 22:37] LABS: ALB/GLOB Ratio 0.8 RATIO (0.9-2.4); AST(SGOT) 15 U/L (15-37); Alanine Aminotransfer ALT/SGPT 12 U/L (16-61); Albumin, Serum 3.1 g/dL (3.2-5.0); Alkaline Phosphatase 118 U/L (45-117); Anion Gap 8 (5-15); BUN 5 mg/dL (7-18); BUN/Creat Ratio 4.8 RATIO (10-20); CRP 6.44 mg/L (0.0-3.0); Chloride 95 mmol/L (98-107); Creatinine, Serum 1.05 mg/dL (0.70-1.30); EST Glomerular Filtration Rate 73 mL/min (>60); Est Glom Filt Rate - Afr Amer 89 mL/min (>60); Glucose 89 mg/dL (74-106); Potassium 4.2 mmol/L (3.5-5.1); Protein, Total 7.1 g/dL (6.4-8.2); Sodium Level 130 mmol/L (136-145); Thyroid Stim Hormone (TSH) 1.98 uIU/mL (0.358-3.74)
== END | disposition home or self-care (01) ==
PROVIDERS: PCP Nurse Practitioner; Visit Provider Nurse Practitioner
DX: R10.30 Lower abdominal pain, unspecified (principal); N30.90 Cystitis, unspecified without hematuria; R63.4 Abnormal weight loss; M54.50 Low back pain, unspecified; R97.20 Elevated prostate specific antigen [PSA]
CPT/HCPCS: 80053; 84153; 84443; 85025; 85652; 86140; 87086

== ENCOUNTER → 2023-08-05 | Outpatient (CLI) | payer MEDICARE, SELFPAY ==
[2023-08-05 22:02] LABS: Absolute Lymphocyte Count 0.94 X10^3/uL (0.83-4.51); Absolute Neutrophil Count 5.2 X10^3/uL (2.0-7.7); Basophil% 1.4 % (0-1); Eosinophil# 0.02 X10^3/uL; Eosinophils% 0.3 % (0-5); Hematocrit 43.2 % (40-54); Hemoglobin 14.5 g/dL (13.0-16.5); Lymphocyte # 0.94 X10^3/ul (0.83-4.51); Lymphocyte % 12.9 % (19-41); Mean Corp Hgb Conc 33.6 g/dL (32-36); Mean Corpuscular Hgb 32.2 pg (27.0-32.0); Mean Platelet Vol. 9.4 fl (6.2-12.0); Monocyte# 1.01 X10^3/uL; Monocyte% 13.9 % (0-10); NRBC Flagged by Analyzer 0 % (0-5); Neutrophil # 5.15 X10^3/uL (2.7-7.7); Neutrophil % 70.9 % (47-70); Platelet Count 350 K/mm3 (150-450); RBC Distribution Width CV 14.6 % (11.6-14.6); RBC Distribution Width SD 52.3 fl (35.1-43.9); White Blood Count 7.3 K/mm3 (4.4-11.0)
[2023-08-05 22:21] LABS: ALB/GLOB Ratio 0.9 RATIO (0.9-2.4); AST(SGOT) 17 U/L (15-37); Alanine Aminotransfer ALT/SGPT 12 U/L (16-61); Albumin, Serum 3.3 g/dL (3.2-5.0); Alkaline Phosphatase 110 U/L (45-117); Anion Gap 6 (5-15); BUN 7 mg/dL (7-18); Chloride 93 mmol/L (98-107); Creatinine, Serum 0.88 mg/dL (0.70-1.30); EST Glomerular Filtration Rate 90 mL/min (>60); Est Glom Filt Rate - Afr Amer 109 mL/min (>60); Globulin 3.8 g/dL (2.2-4.2); Glucose 89 mg/dL (74-106); PSA,Total- Diagnostic 8.63 ng/mL (0.0-4.0); Potassium 4.8 mmol/L (3.5-5.1); Protein, Total 7.1 g/dL (6.4-8.2); Sodium Level 127 mmol/L (136-145)
[2023-08-05 22:24] LABS: D-Dimer Quantitative (DVT/PE) 0.85 FEU/ug/m (0.27-0.49)
--- OUTSIDE RECORDS SUMMARY | 2023-08-06 00:34 | XMS RPT_ITS | CCD ---
Author Name Unknown Address [address] [place] [address] Organization [facility] Care Team Providers Care Partnership Development Manager Name Role Phone ANGLE BERG Unavailable Unavailable [...] Unavailable Unavailable Walters, Cuauhtemoc Unavailable Unavailable Walters GROUP PRACTICE PEDIATRICIAN.SALES TECHNICIAN, Cuauhtemoc L Primary Care Provide r Usama Siddiqi MD Unavailable [phone] DUKE FRANKLIN Attending Unavailable WALTERS, CUAUHTEMOC L Primary Care Unavailable RIVAS, EMMA E Attending Unavailable WALTERS, CUAUHTEMOC L Primary Care Unavailable WALTERS, CUAUHTEMOC L Primary Care Unavailable RIVAS, EMMA E Attending Unavailable WALTERS, CUAUHTEMOC L Primary Care Unavailable SUKHJINDER LAN Attending Unavailable WALTERS, CUAUHTEMOC L Primary Care Unavailable RIVAS, EMMA E Admitting Unavailable IRVAS, EMMA E Attending Unavailable WALTERS, CUAUHTEMOC L [...] Primary Care Unavailable DELROY MERA Admitting Unavailable VALERIA [place] Attending Unavailable Cuauhtemoc Walters Primary Care Provider CUAUHTEMOC WALTERS Primary Care Unavailable SHANNON NORTON [...] disease (20 sources) Atherosclerotic heart disease of [place] coronary artery without angina pectoris; Translations: [Coronary [...] 01-02-2010 06-02-2017 Episodic Other aftercare (4 sources) intermediate card 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 (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 of aspirin; Translations: [intermediate card tender (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 of aspirin] Onset: 10-21-2017 Episodic [...] 97.3 [degF] Shannon Norton MD Work Phone: [facility] [employer] 04-22-2023 14:03-0500 Diastolic blood pressure 83 mm[Hg] Shannon Norton MD Work Phone: [facility] [employer] 04-22-2023 14:03-0500 Heart rate 71 /min Shannon Norton MD Work Phone: [facility] [employer] 04-22-2023 14:03-0500 Respiratory rate 16 /min Shannon Norton MD Work Phone: [facility] [employer] 04-22-2023 14:03-0500 SaO2% (BldA) [Mass fraction] 99 % Shannon Norton MD Work Phone: [facility] [employer] 04-22-2023 14:03-0500 Systolic blood pressure 142 mm[Hg] Shannon Norton MD Work Phone: [facility] [employer] 04-22-2023 12:07-0500 Body height 175.3 cm Shannon Norton MD Work Phone: [facility] [employer] 04-22-2023 12:07-0500 Body mass index (BMI) [Ratio] 20.67 kg/m2 Shannon Norton MD Work Phone: [facility] [employer] 04-22-2023 12:07-0500 Body weight 63.5 kg Shannon Norton MD Work Phone: [facility] [employer] 07-09-2022 14:22-0500 Body height 175.3 cm Duke Franklin MD Work Phone: [facility] 07-09-2022 14:22-0500 Body weight 61.69 kg Duke Franklin MD Work Phone: [facility] Encounters Encounter Date Encounter Type Care Provider Facility Start: 04-22-2023 End: 04-22-2023 ambulatory CUAUHTEMOC WALTERS [facility] Start: 04-22-2023 End: 04-22-2023 Subsequent hospital visit by physician Shannon Norton MD Work Phone: [facility] Start: 10-10-2022 End: 10-11-2022 ambulatory CUAUHTEMOC WALTERS Facility:[facility] Start: 09-18-2022 End: 09-18-2022 ambulatory EMMAPETAR RIVAS Facility:[facility] Start: 09-18-2022 End: 09-18-2022 Patient encounter procedure Emma Rivas MD Work Phone: General Surgery Procedures Date Procedure Procedure Detail Performing Clinician Start: 07-11-2022 Ct pelvis w/o contra st material Duke Franklin MD Work Phone: Start: 07-09-2022 Urnls dip stick/tabl et rgnt auto w/o microscopy Duke Franklin MD Work Phone: Plan of Treatment Date Care Activity Detail Author Start: 07-13-2025 DIABETES SCREEN DIABETES SCREEN [facility] Start: 04-22-2023 End: 04-22-2023 Xcapsl ctrc rmvl insj io lens prosth w/o ecp PHACOEMULSIFICATION WITH INTRAOCULAR LENS INSERTION Combined forms of age-related cataract, left eye 04/22/2023 1:29 PM EST [facility] OR Start: 02-08-2023 Influenza vaccination [facility] Start: 06-10-2022 ADVANCE DIRECTIVE DISCUSSION ADVANCE DIRECTIVE DISCUSSION [facility] Start: 06-10-2022 DEPRESSION ASSESSMENT DEPRESSION ASSESSMENT [facility] Start: 02-08-2022 Influenza vaccination INFLUENZA (#1) [facility] Start: 06-01-2020 DIABETES SCREEN DIABETES SCREEN [facility] Start: 10-20-2018 LIPID SCREEN LIPID SCREEN [facility] Start: 10-20-2014 Hepatitis B surface antibody level LDL CHOLESTEROL [facility] Start: 02-16-2013 Pneumococcal Vaccine: 65+ Years (1 - PCV) Pneumococcal Vaccine: 65+ Years (1 - PCV) [facility] Start: 02-16-2013 PNEUMOCOCCAL: 65+ (1 - PCV) PNEUMOCOCCAL: 65+ (1 - PCV) [facility] Start: 02-16-1998 SHINGRIX VACCINE (1 of 2) SHINGRIX VACCINE (1 of 2) [facility] Start: 02-16-1998 Zoster Vaccines (1 of 2) Zoster Vaccines (1 of 2) [facility] Start: 02-16-1993 COLOGUARD (FIT-DNA) COLOGUARD (FIT-DNA) [facility] Start: 02-16-1993 Colonoscopy COLONOSCOPY [facility] Start: 02-16-1993 COLORECTAL CANCER SCREENING COLORECTAL CANCER SCREENING [facility] Start: 02-16-[address] COLONOGRAPHY [facility] Start: 02-16-1993 FECAL OCCULT BLOOD FECAL OCCULT BLOOD [facility] Start: 02-16-1993 SIGMOIDOSCOPY SIGMOIDOSCOPY [facility] Start: 02-16-1967 DTaP/Tdap/Td Vaccines (1 - Tdap) DTaP/Tdap/Td Vaccines (1 - Tdap) [facility] Start: 02-16-1967 Urine microalbumin profile DTAP,TDAP,TD (1 - Tdap) [facility] Start: 02-16-1966 ANNUAL PCP TEAM CHRONIC DISEASE VISIT ANNUAL PCP TEAM CHRONIC DISEASE VISIT [facility] Start: 02-16-1966 BP CONTROLLED (<130/80) BP CONTROLLED (<130/80) [facility] in Start: 02-16-1966 Diabetes mellitus screening Diabetes Screening [facility] Start: 02-16-1966 HEPATITIS C SCREENING HEPATITIS C SCREENING [facility] Start: 02-16-1966 Hepatitis C screening Hepatitis C Screening [facility] Start: 1960 Depression Screening Depression Screening [facility] Start: 1948 COVID-19 VACCINE (#1) COVID-19 VACCINE (#1) [facility] Start: 1948 ABDOMINAL AORTIC ANEURYSM SCREENING ABDOMINAL AORTIC ANEURYSM SCREENING [facility] Start: 1948 Lipid panel Lipid Panel [facility] Start: 1948 Medicare Advantage Annual Wellness Visit (AWV) Medicare Advantage Annual Wellness Visit (AWV) [facility] Start: 1948 Screening for malignant neoplasm of colon [facility] Clostridioides diffi cile toxin genes [Presence] in Stool by ALEX with probe detection C. DIFFICILE PCR Lab Routine Diarrhea, unspecified type 07/18/2022 12:00 PM EST [facility] Work Phone: End: 08-08-2023 Ct pelvis w/o contrast material CT PELVIS WO IVCON Radiology STAT Right inguinal hernia 1 Occurrences starting 07/09/2022 until 08/08/2023 [facility] Work Phone: Payers Date Payer Category Payer Medicare [id number] 2013 Medicare 1950 Unknown [id number] 1948 Unknown [id number] 1948 Unknown [id number] 1948 Unknown [id number] [id number] [id number] 1948 Unknown [id number] [id number] Medicare [id number] Unknown Social History Date Type Detail Facility Start: 07-09-2022 [facility] End: 03-10-2014 History of tobacco use Current smoker [facility] End: 03-10-2014 History of tobacco use Cigarette Smoker [facility] Start: 07-09-2022 End: 04-22-2023 Cigarette pack-years [facility] Start: 07-09-2022 End: 04-22-2023 Alcohol intake Current drinker of alcohol (finding) [facility] Start: 06-01-2017 Alcohol Comment daily [facility] Start: 1950 Sex Assigned At Not on file C [facility] Start: 04-22-2023 Tobacco use panel [facility] Start: 04-22-2023 Alcohol Comment 6-8 beers/day [facility] Medical Equipment Procedure Code Equipment Code Equipment Origin al Text Equipment Identifier Dates Med Dextile Rt 1 3cm X 9cm (5.1 X 3.5) - [id number] Start: 08-24-2022 Lens Iol Posteri or Akre[facility] - [id number] - [id number] Start: 04-22-2023 Clinical Notes 10-17-2013 to [...] Mode of transportation private vehicle Belongings sent. [facility] 04-22-2023 Note Patient: Stu salinas Procedure Summary Date: 04/22/23 Room / Location: [facility] OR / [facility] OR Anesthesia Start: 1328 Anesthesia Stop: [...] once all PACU criteria has been met. [facility] 04-22-2023 Note Patient: Stu salinas Procedure Summary Date: 04/22/23 Room / Location: [facility] OR / [facility] OR Anesthesia Start: [...] opportunity for questions and acknowledgement of understanding. [facility] 04-22-2023 Note Formatting of this n ote might be different from the original. Discharged to home . Accompanied by . AVS and education reviewed with patient and , both verbalized understanding. Mode of transportation private vehicle Belongings sent. [facility] 04-22-2023 Miscellaneous Notes Discharged to home . [...] of the anterior capsule using trypan blue. REHAB OFFICE COORDINATOR: None PROCESS DEVELOPER: Per anesthesia record. ANESTHESIA: Local with topical [...] 04/22/23 2:05 PM documented in this encounter [facility] 04-22-2023 Hospital Discharge instructions Shannon Norton MD [...] have any problems. documented in this encounter [facility] 04-22-2023 Note Subjective Stu Edmonds is a [...] HTN TIA (10/2022) HLD GERD Cataract, L [facility] 04-22-2023 Note Formatting of this n [...] of the anterior capsule using trypan blue. REHAB OFFICE COORDINATOR: None PROCESS DEVELOPER: Per anesthesia record. ANESTHESIA: Local with topical [...] condition. SHANNON NORTON MD 04/22/23 2:05 PM [facility] 04-22-2023 History and physical note Casandra [...] HTN TIA (10/2022) HLD GERD Cataract, L [facility] 04-22-2023 History and physical note Subjective [...] GERD Cataract, L documented in this encounter [facility] 04-18-2023 Note Patient: Stu salinas Procedure Information Date/Time: 04/22/23 1230 Procedure: PHACOEMULSIFICATION WITH INTRAOCULAR LENS INSERTION (Left: Eye) Location: [facility] OR 1 / [facility] OR Surgeons: [...] (Final) Narrative Ordered by an unspecified provider. [facility] 09-19-2022 Note HNO ID: [id number] Author: Emma Rivas MD Service: ? Author [...] this visit on 09/18/22. Emma Rivas MD [facility] 09-19-2022 History of Present illness Narrative HPI: [...] Emma Rivas MD documented in this encounter [facility] 08-24-2022 Note HNO ID: [id number] Author: Jaclyn Martinez APRN.CRNA Service: Anesthesiology Author Type: Nurse Foot Roentgenologist Type: Anesthesia Procedure Notes Filed: 08/24/2022 11:59 AM Note Text: ANESTHESIOLOGY PROCEDURE NOTE Airway General Information Procedure Start Time/Medication Administration: 08/24/2022 11:51 AM Patient location during procedure: OR Timeout Performed Pre-procedure: timeout performed Consent Obtained: Yes Patient identity confirmed: 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 Author Type: Physician Type: Procedures Filed: 08/21/2022 6:23 PM Note Text: Anticipated Surgical Procedure/ CPT Code: laparoscopic right inguinal hernia repair with mesh - 48925-047 Anticipated Anesthetic: General Patient weight: There were no vitals taken for this visit. BMI: There is no height or weight on file to calculate BMI. Planned antibiotic: SCDs needed: Yes Echocardiography Tech Needed: Yes Pre Op Clearance: PAT Anticoagulation: No Diabetic: No Location: [facility] 08-21-2022 History of Present illness Narrative Radiology [...] 2022 5:05 PM documented in this encounter [facility] 08-21-2022 Miscellaneous Notes Patient is having surgery Thursday 08/24 needs PAT documented in this encounter [facility] 08-21-2022 Procedure note Anticipated Surgical Procedure/ CPT Code: laparoscopic right inguinal hernia repair with mesh - [id number] Anticipated Anesthetic: General Patient weight: There were no vitals taken for this visit. BMI: There is no height or weight on file to calculate BMI. Planned antibiotic: SCDs needed: Yes Echocardiography Tech Needed: Yes Pre Op Clearance: PAT Anticoagulation: No Diabetic: No Location: [facility] documented in this encounter [facility] 07-27-2022 Note HNO ID: [id number] Author: Sukhjinder Lan PA-C Service: ? Author Type: Physician Echocardiography Tech Type: Progress Notes Filed: 07/27/2022 3:03 PM [...] Negative for malignancy. Sukhjinder Lan PA-C 07/27/2022 [facility] 07-20-[address] Rivas, Called patient and informed him that his pneumothorax has resolved. Patient verbalizes understanding and has no further questions or concerns at this time. Encounter closed. documented in this encounter [facility] 07-18-2022 Note HNO ID: [id number] Author: RT Kate(Deepak) Service: Radiology Author Type: Grade Setter Type: Progress Notes Filed: 07/18/2022 11:48 AM [...] RT Kate(R) July 18, 2022 11:48 AM [facility] 07-18-2022 History of Present illness Narrative [...] 2022 11:48 AM documented in this encounter [facility] 07-17-2022 Miscellaneous Notes Spoke with patient and advised of information per MD. Patient verbalized understanding. He states that will do chest xray and stool specimen at the [facility] tomorrow morning. No further questions [...] for C Diff? documented in this encounter [facility] 07-13-2022 Note HNO ID: [id number] Author: Emma Rivas MD Service: General Surgery [...] 1756 -- 07/12/22 1930 pneumatic compression stockings ([place], [place]) 07/12/22 1800 vte pharmacologic prophylaxis contraindicated ([place]) 07/12/22 1800 pneumatic compression stockings ([place]) 07/12/22 1800 activity - mobilize patient ([place]) VTE Prophylaxis: VTE prophylaxis appropriate POSTOP [...] DATE: July 13, 2022 TIME: 11:34 AM [id number] [facility] 07-12-2022 Note HNO ID: [id number] Author: Patel Newton APRN.WELDER APPRENTICE COMBINATION Service: Anesthesiology Author Type: Nurse Foot Roentgenologist Type: Anesthesia Procedure Notes Filed: 07/12/2022 4:21 PM Note Text: ANESTHESIOLOGY PROCEDURE NOTE Airway General Information Procedure Start Time/Medication Administration: 07/12/2022 3:34 PM Procedure End Time: 07/12/2022 3:37 AM Patient location during procedure: OR Timeout Performed Pre-procedure: timeout performed Consent Obtained: Yes Patient identity confirmed: arm band and patient Staffing WELDER APPRENTICE COMBINATION: Patel Newton APRN.WELDER APPRENTICE COMBINATION Indications and Patient Condition Indications for airway [...] July 12, 2022 TIME: 4:20 PM CSN: [id number] [facility] 07-11-2022 Miscellaneous Notes Radiology Service Progress [...] 2022 1:24 PM documented in this encounter [facility] 07-09-2022 Note HNO ID: [id number] Author: Duke Franklin MD Service: ? Author Type: Physician Type: Progress Notes Filed: 07/09/2022 2:42 PM Note Text: [facility] NEW PATIENT [...] up with General Surgery Duke Franklin MD [facility] 07-09-2022 History of Present illness Narrative Images from the original note were not included. [facility] NEW PATIENT [...] Duke Franklin MD documented in this encounter [facility] documented as of this encounter (statuses as of 07/09/2022) [facility] History of Past illness Narrative* Problem [...] of this encounter (statuses as of 07/12/2022) [facility] History of Past illness Narrative* Problem [...] of this encounter (statuses as of 07/12/2022) [facility] of Past illness Narrative* Problem [...] of this encounter (statuses as of 07/18/2022) [facility] of Past illness Narrative* Problem [...] of this encounter (statuses as of 07/19/2022) [facility] of [facility] illness Narrative* Problem [...] of this encounter (statuses as of 07/24/2022) [facility] Narrative* Problem [...] of this encounter (statuses as of 08/22/2022) [facility] of [facility] illness Narrative* Problem [...] of this encounter (statuses as of 08/22/2022) [facility] Narrative* Problem [...] of this encounter (statuses as of 08/23/2022) [facility] of Past illness Narrative* Problem [...] of this encounter (statuses as of 09/20/2022) [facility] Right inguinal hernia- Primary Inguinal hernia without mention of obstruction or gangrene, unilateral or unspecified, (not specified as recurrent) [facility] Diagnosis Right inguinal hernia Inguinal hernia without mention of obstruction or gangrene, unilateral or unspecified, (not specified as recurrent) [facility] Diagnosis Diarrhea, unspecified type- Primary [facility] Diagnosis Non-recurrent bilateral inguinal hernia without obstruction or gangrene Pneumothorax on right Other pneumothorax Acute appendicitis with localized peritonitis and gangrene, without perforation or abscess [facility] Diagnosis Right inguinal hernia- Primary Inguinal hernia without mention of obstruction or gangrene, unilateral or unspecified, (not specified as recurrent) H/O pneumothorax Personal history of other diseases of respiratory system [facility] Diagnosis H/O pneumothorax Personal history of other diseases of respiratory system [facility] S/P laparoscopic hernia repair- Primary Other postprocedural status [facility] Diagnosis Combined forms of age-related cataract of left eye- Primary documented in this encounter [facility] Health Summary Purpose Family History No [...] hernia Procedures CONSULT TO GENERAL SURGERY OFFICE/OUTPATIENT [facility] 60-74 MINUTES Duke Franklin MD [address] [place] [address] Referral ID Status Reason Start Date Expiration Date Visits Requested Visits Authorized [id number] Authorized PCP Requested Referral 07/09/2022 07/09/2023 1 1 Specialty Diagnoses / Procedures Referred By Contac t Referred To Contact CT IMAGING Diagnoses Right inguinal hernia Procedures CT PELVIS WO IVCON CT PELVIS W/O CONTRAST MATERIAL Duke Franklin MD [address] [place] [address] Ct Imaging Referral ID Status Reason Start Date Expiration Date Visits Requested Visits Authorized [id number] Authorized Auto-Generat ed Referral 07/09/2022 08/08/2023 1 1 Referral ID Status Reason Start Date Expiration Date V isits Requested Visits Authorized [id number] Closed Auto-Generate d Referral 07/09/2022 08/08/2023 1 1 Additional Source Comments (unrecognized sect ion and content) No Status Records FoundNo Status Records FoundNo Status Records FoundNo Status Records FoundNo Status Records FoundNo Status Records FoundNo Status Records Found INFORMATION SOURCE (unrecogn ized section and content) DATE CREATED AUTHOR AUTHOR'S ORGANIZ ATION 12/03/2017 [facility] DATE CREATED AUTHOR AUTHOR'S ORGANIZ ATION 04/14/2018 [facility] DATE CREATED AUTHOR AUTHOR'S ORGANIZ ATION 05/11/2018 [facility] DATE CREATED AUTHOR AUTHOR'S ORGANIZ ATION 09/23/2022 [facility] DATE CREATED AUTHOR AUTHOR'S ORGANIZ ATION 10/16/2022 [facility] DATE CREATED AUTHOR AUTHOR'S ORGANIZ ATION 04/23/2023 [facility] Source Comments (unrecognize d section and content) In the event this informatio n is protected by the Federal Confidentiality of Alcohol and Drug Abuse Patient Records regulations: The Federal rules restrict any use of the information to criminally investigate or prosecute any alcohol or drug abuse patient.[facility] the event this information is protected by the Federal Confidentiality of Alcohol and Drug Abuse Patient Records regulations: The Federal rules restrict any use of the information to criminally investigate or prosecute any alcohol or drug abuse patient.[facility] the event this information is protected by the Federal Confidentiality of Alcohol and Drug Abuse Patient Records regulations: The Federal rules restrict any use of the information to criminally investigate or prosecute any alcohol or drug abuse patient.[facility] the event this information is protected by the Federal Confidentiality of Alcohol and Drug Abuse Patient Records regulations: The Federal rules restrict any use of the information to criminally investigate or prosecute any alcohol or drug abuse patient.[facility] the event this information is protected by the Federal Confidentiality of Alcohol and Drug Abuse Patient Records regulations: The Federal rules restrict any use of the information to criminally investigate or prosecute any alcohol or drug abuse patient.[facility] the event this information is protected by the Federal Confidentiality of Alcohol and Drug Abuse Patient Records regulations: The Federal rules restrict any use of the information to criminally investigate or prosecute any alcohol or drug abuse patient.[facility] the event this information is protected by the Federal Confidentiality of Alcohol and Drug Abuse Patient Records regulations: The Federal rules restrict any use of the information to criminally investigate or prosecute any alcohol or drug abuse patient.[facility] the event this information is protected by the Federal Confidentiality of Alcohol and Drug Abuse Patient Records regulations: The Federal rules restrict any use of the information to criminally investigate or prosecute any alcohol or drug abuse patient.[facility] the event this information is protected by the Federal Confidentiality of Alcohol and Drug Abuse Patient Records regulations: The Federal rules restrict any use of the information to criminally investigate or prosecute any alcohol or drug abuse patient.[facility] the event this information is protected by the Federal Confidentiality of Alcohol and Drug Abuse Patient Records regulations: The Federal rules restrict any use of the information to criminally investigate or prosecute any alcohol or drug abuse patient.[facility] Reason for Visit (unrecogniz ed section and content) Specialty Diagnoses / Procedures Referred By Dennis miranda Referred To Contact CT IMAGING Diagnoses Right inguinal hernia Procedures CT PELVIS WO IVCON CT PELVIS W/O CONTRAST MATERIAL Duke Franklin MD [address] [place] [address] Ct Imaging Referral ID Status Reason Start Date Expiration Date V isits Requested Visits Authorized [id number] Closed Auto-Generate d Referral 07/09/2022 08/08/2023 1 1 Reason Comments Abdominal Pain/ Frequent Stool Reason Comments Chest Xray Follow up Call Reason Comments Follow Up Discuss hernia surge ry, R inguinal, has gotten larger/worse Reason Comments Follow Up Phone Call Reason Comments Surgical Followup Care Teams (unrecognized sec tion and content) Partnership Development Manager Relationship Specialty Start Date End Date Cuauhtemoc Walters, HARDY.SALES TECHNICIAN [address] [place] [address] PCP - General 10/18/13 Usama Siddiqi MD [address] [place] [address] Primary Staff Physician Cardiology 08/26/18 Partnership Development Manager Relationship Specialty Start Date End Date Cuauhtemoc Walters, GROUP PRACTICE PEDIATRICIAN.SALES TECHNICIAN [address] [place] [address] PCP - General 10/18/13 Usama Siddiqi MD [address] [place] [address] Primary Staff Physician Cardiology 08/26/18 Partnership Development Manager Relationship Specialty Start Date End Date Cuauhtemoc Walters, GROUP PRACTICE PEDIATRICIAN.SALES TECHNICIAN [address] [place] [address] PCP - General 10/18/13 Usama Siddiqi MD [address] [place] [address] Primary Staff Physician Cardiology 08/26/18 Partnership Development Manager Relationship Specialty Start Date End Date Cuauhtemoc Walters, GROUP PRACTICE PEDIATRICIAN.SALES TECHNICIAN [address] [place] [address] PCP - General 10/18/13 Usama Siddiqi MD [address] [place] [address] Primary Staff Physician Cardiology 08/26/18 Partnership Development Manager Relationship Specialty Start Date End Date Cuauhtemoc Walters, GROUP PRACTICE PEDIATRICIAN.SALES TECHNICIAN [address] [place] [address] PCP - General 10/18/13 Usama Siddiqi MD [address] [place] [address] Primary Staff Physician Cardiology 08/26/18 Partnership Development Manager Relationship Specialty Start Date End Date Cuauhtemoc Walters, GROUP PRACTICE PEDIATRICIAN.SALES TECHNICIAN [address] [place] [address] PCP - General 10/18/13 Usama Siddiqi MD [address] [place] [address] Primary Staff Physician Cardiology 08/26/18 Partnership Development Manager Relationship Specialty Start Date End Date Joseluis Cuauhtemoc Abbott, GROUP PRACTICE PEDIATRICIAN.SALES TECHNICIAN [address] [facility] [address] [place], [place] [id number] PCP - General 10/18/13 Usama Siddiqi MD [address] [place] [address] Primary Staff Physician Cardiology 08/26/18 Partnership Development Manager Relationship Specialty Start Date End Date Joseluis Cuauhtemoc [address] [place] [address] PCP - General 05/03/15 FOR RECORDS PERTAINING [...] BE BASED ON THE PRIMARY CLINICAL RECORDS. [facility] [employer] [facility]. provides no warranty or guarantee of the accuracy or completeness of information in this document.
== END | disposition home or self-care (01) ==
PROVIDERS: PCP Nurse Practitioner; Visit Provider Nurse Practitioner
DX: R97.20 Elevated prostate specific antigen [PSA] (principal); E87.1 Hypo-osmolality and hyponatremia; R25.2 Cramp and spasm; R10.30 Lower abdominal pain, unspecified
CPT/HCPCS: 80053; 84153; 85025; 85379

== ENCOUNTER → 2023-09-18 | Outpatient (CLI) | payer MEDICARE, SELFPAY ==
[2023-09-18 21:30] LABS: PSA,Total- Diagnostic 6.37 ng/mL (0.0-4.0)
== END | disposition home or self-care (01) ==
PROVIDERS: PCP Nurse Practitioner; Visit Provider Nurse Practitioner
DX: R97.20 Elevated prostate specific antigen [PSA] (principal)
CPT/HCPCS: 84153

== ENCOUNTER → 2024-06-18 | Outpatient (CLI) | payer MEDICARE, SELFPAY ==
[2024-06-18 22:29] LABS: Absolute Lymphocyte Count 0.84 X10^3/uL (0.83-4.51); Absolute Neutrophil Count 4.1 X10^3/uL (2.0-7.7); Basophil# 0.08 X10^3/uL; Basophil% 1.4 % (0-1); Eosinophil# 0.07 X10^3/uL; Eosinophils% 1.2 % (0-5); Hematocrit 42.2 % (40-54); Hemoglobin 14.3 g/dL (13.0-16.5); Lymphocyte # 0.84 X10^3/ul (0.83-4.51); Lymphocyte % 14.2 % (19-41); Mean Corp Hgb Conc 33.9 g/dL (32-36); Mean Corpuscular Hgb 31.4 pg (27.0-32.0); Mean Corpuscular Volume 92.5 fL (80-94); Mean Platelet Vol. 9.3 fl (6.2-12.0); Monocyte# 0.78 X10^3/uL; Monocyte% 13.2 % (0-10); NRBC Flagged by Analyzer 0 % (0-5); Neutrophil # 4.13 X10^3/uL (2.7-7.7); Neutrophil % 69.7 % (47-70); Platelet Count 316 K/mm3 (150-450); RBC Distribution Width CV 12.5 % (11.6-14.6); RBC Distribution Width SD 42.7 fl (35.1-43.9); Red Blood Count 4.56 M/mm3 (4.6-6.2); White Blood Count 5.9 K/mm3 (4.4-11.0)
[2024-06-18 22:54] LABS: ALB/GLOB Ratio 0.9 RATIO (0.9-2.4); AST(SGOT) 11 U/L (15-37); Alanine Aminotransfer ALT/SGPT 10 U/L (16-61); Albumin, Serum 3.5 g/dL (3.2-5.0); Alkaline Phosphatase 89 U/L (45-117); Anion Gap 8 (5-15); BUN 10 mg/dL (7-18); BUN/Creat Ratio 7.4 RATIO (10-20); Calcium,Total 9.2 mg/dL (8.5-10.1); Chloride 89 mmol/L (98-107); Cholesterol 185 mg/dL (200); Creatinine, Serum 1.36 mg/dL (0.70-1.30); EST Glomerular Filtration Rate 54 mL/min (>60); Est Glom Filt Rate - Afr Amer 66 mL/min (>60); Globulin 3.8 g/dL (2.2-4.2); Glucose 110 mg/dL (74-106); High Density Lipoprotein 67 mg/dL; PSA,Total- Diagnostic 6.99 ng/mL (0.0-4.0); Potassium 4.6 mmol/L (3.5-5.1); Protein, Total 7.3 g/dL (6.4-8.2); Sodium Level 123 mmol/L (136-145); Triglycerides 56 mg/dL; Very Low Density Lipoprotein 11 mg/dL (5-40)
== END | disposition home or self-care (01) ==
PROVIDERS: PCP Nurse Practitioner; Referring Provider Nurse Practitioner; Visit Provider Nurse Practitioner
DX: R97.20 Elevated prostate specific antigen [PSA] (principal); E03.9 Hypothyroidism, unspecified; E78.5 Hyperlipidemia, unspecified
CPT/HCPCS: 80053; 80061; 84153; 85025

== ENCOUNTER → 2024-07-02 | Outpatient (CLI) | payer MEDICARE, SELFPAY ==
[2024-07-06 13:06] LABS: Anti-Centromere B Ab <0.2 AI (0.0-0.9); Anti-Chromatin <0.2 AI (0.0-0.9); Anti-Jo <0.2 AI (0.0-0.9); Anti-Scleroderma-70 AB <0.2 AI (0.0-0.9); Anti-dsDNA Ab <1 IU/mL (0-9); RNP Ab <0.2 AI (0.0-0.9); SJOGREN'S Anti-SS-A test < 0.2 AI (0.0-0.9); SJOGREN'S Anti-SS-B test < 0.2 AI (0.0-0.9); Smith Ab <0.2 AI (0.0-0.9)
== END | disposition home or self-care (01) ==
PROVIDERS: PCP Nurse Practitioner; Referring Provider Nurse Practitioner; Visit Provider Nurse Practitioner
DX: L30.9 Dermatitis, unspecified (principal); N30.90 Cystitis, unspecified without hematuria
CPT/HCPCS: 86225; 86235; 87086

== ENCOUNTER → 2024-08-24 | Outpatient (CLI) | payer MEDICARE, SELFPAY ==
--- NOTE | 2024-08-24 | LES_PTH ---
PATIENT: JEET MARTIN LOC: [facility] U#:[id number] AGE/SX: 74/M ROOM: RE08/24/[address]: PATO Sequeira : 1950 BED: DIS: 08/24/2024 SPEC #: [id number] RECD: 08/25/24 10:12 STATUS: AMANDA MAIN #: [id number] COCO: 08/24/24 00:[address]: Lara Huggins NP DEPT: SURGICAL PATHOLOGY RECD BY: Ramy Vazquez Tissues: A - Skin of leg, NOS Procedures: Special Stain Group I Surgery Specimen Level IV GMS Stain (control) HEADER OPERATION: Punch biopsy PRE-OP DIAGNOSIS: Abnormal skin lump, dermatitis vs autoimmune disorder TISSUE SUBMITTED: A- Biopsy of right port lower extremity MICROSCOPIC DIAGNOSIS A. Skin, right posterior lower extremity, punch biopsy: (PRELIMINARY DIAGNOSIS) * Dermal lymphohistiocytic infiltrate with occasional eosinophils, focal mild parakeratosis, mild dermal solar change. * PASD stain is negative for fungal organisms. * Further evaluation is PENDING DERMATOPATHOLOGY CONSULTATION AT [facility] and the FINAL DIAGNOSIS will be reported in an Addendum. MICROSCOPIC DESCRIPTION Slides are reviewed. Matched control reacted appropriately. GROSS DESCRIPTION A. Received in fixative is one container labeled with the patient's name and designated Punch biopsy right posterior lower extremity. The specimen consists of a round piece of skin measuring 0.6 x 0.6cm and a depth of 0.4cm. The deep margin is inked black. Sectioned in its entirety in one cassette. 08/25/2024 CPT:25732 ,53114 ADDENDUM ADDENDUM ADDENDUM ADDENDUM ADDENDUM ADDENDUM ADDENDUM ADDENDUM ADDENDUM ADDENDUM ADDENDUM ADDENDUM ADDENDUM ADDENDUM ADDENDUM 09/14/2024 16:21 ADDENDUM 09/14/2024 16:21 ADDENDUM 09/14/2024 16:21 ADDENDUM 09/14/2024 16:21 ADDENDUM 09/14/2024 16:21 This addendum is added to incorporate an outside pathology consultation report. The case was examined at [facility] by Dr. Lindquist (#[id number]) and the following diagnosis was rendered. A. Skin, right posterior lower extremity, punch: Dermatitis with brisk chronic inflammation cell infiltrate. TCRB INTERPRETATION: The oligoclonal amplification pattern observed for both TCRG PCR may indicate a skewed or limited diversity T-cell repertoire or possibility a low-level T-cell clone admixed with reactive Tcells. Please see complete above mentioned consultation report in EMR
== END | disposition home or self-care (01) ==
PROVIDERS: PCP Nurse Practitioner; Visit Provider Nurse Practitioner
DX: L30.9 Dermatitis, unspecified (principal); L93.2 Other local lupus erythematosus
CPT/HCPCS: 88305